=== PATIENT | male | born 1940 | race Caucasian/White ===

== ENCOUNTER 2020-05-23 19:28 | Emergency (ER) | payer MEDICARE, BC ==
[2020-05-23] MEDS ORDERED: Sodium Chloride 0.9% 10 ML Syringe FLUSH PRN (19:36)
[2020-05-23] MEDS ORDERED: Aspirin 81 MG Tab.Chew PO STA (19:43)
--- NOTE | 2020-05-23 19:46 | EDM.PDOC ---
ED HPI GENERAL MEDICAL PROBLEM - General Chief Complaint: Cardiovascular Problem Stated Complaint: HEART Time Seen by Provider: 05/23/20 19:30 Source of Information: Reports: Patient History Limitations: Reports: No Limitations - History of Present Illness INITIAL COMMENTS - FREE TEXT/NARRATIVE: Patient comes into the emergency department with complaint of defibrillator discharge x2. Patient states that he was sitting at home and felt that he had an irregular heartbeat that was racing and his defibrillator went off the first time. Patient was not aware that it was his actual defibrillator went off. He felt that he had electrical shock made by some water or electrical charge. However he called the [facility] call a nurse who stated to present to the emergency department And now on his way out of the home he had a second defibrillator discharge and went off. Patient states that he did get blurred vision but did not lose consciousness and did not lose his balance. Patient states he remembers all the events leading up to and after the defibrillator discharge.Also denies any active chest pain, shortness of breath, dizziness, lightheadedness, GI upset, or peripheral edema. Patient states is been relatively healthy and has no other concerns or complaints. Patient also denies any active COVID-19 symptoms or exposure to recent COVID positive patients.Patient did also take his evening meds. Patient did take 1 baby aspirin this morning with his normal daily medication regimen Onset: Sudden Severity: Mild Improves with: Reports: None Worsens with: Reports: None Associated Symptoms: Reports: No Other Symptoms - Related Data Allergies Allergy/AdvReac Type Severity Reaction Status Date / Time No Known Drug Allergies Allergy Other Verified 05/23/20 19:55 Home Meds: Home Meds Latanoprost [Xalatan] 2.5 ml .XX DAILY 05/28/14 [History] Losartan [Cozaar] 25 mg PO DAILY 05/28/14 [History] carvediloL [Coreg] 6.25 mg PO BID 05/28/14 [History] Aspirin 81 mg PO DAILY 09/03/16 [History] Past Medical History Cardiovascular History: Reports: Arrhythmia, Automatic Implantable Cardioverter Defibrillators, Hypertension ED ROS GENERAL - Review of Systems Review Of Systems: Comprehensive ROS is negative, except as noted in HPI. Constitutional: Reports: No Symptoms HEENT: Reports: No Symptoms Respiratory: Reports: No Symptoms Cardiovascular: Reports: No Symptoms Endocrine: Reports: No Symptoms GI/Abdominal: Reports: No Symptoms : Reports: No Symptoms Musculoskeletal: Reports: No Symptoms Skin: Reports: No Symptoms Neurological: Reports: No Symptoms Psychiatric: Reports: No Symptoms Hematologic/Lymphatic: Reports: No Symptoms Immunologic: Reports: No Symptoms ED EXAM, GENERAL - Physical Exam Exam: See Below Exam Limited By: No Limitations General Appearance: Alert, WD/WN, No Apparent Distress Head: Atraumatic, Normocephalic Neck: Normal Inspection, Supple, Non-Tender, Full Range of Motion Respiratory/Chest: No Respiratory Distress, Lungs Clear, Normal Breath Sounds, No Accessory Muscle Use, Chest Non-Tender Cardiovascular: Normal Peripheral Pulses, No Edema, No Rub GI/Abdominal: Normal Bowel Sounds, Soft, Non-Tender, No Abnormal Bruit Back Exam: Normal Inspection, Full Range of Motion Extremities: Normal Inspection, Normal Range of Motion, Non-Tender, No Pedal Edema, Normal Capillary Refill Neurological: Alert, Oriented, Normal Cognition, Normal Gait Psychiatric: Normal Affect, Normal Mood Skin Exam: Warm, Dry, Intact Course - Orders/Labs/Meds Orders: Active Orders 24 hr Category Date Time Status EKG Documentation Completion [RC] STAT Care 05/23/20 19:36 Active CBC WITH AUTO DIFF [HEME] Stat Lab 05/23/20 19:36 Ordered COMPREHENSIVE METABOLIC PN,CMP [CHEM] Stat Lab 05/23/20 19:36 Ordered PRO B-TYPE NATRIUR PEPT,BNPPRO [CHEM] Stat Lab 05/23/20 19:36 Ordered TROPONIN I [CHEM] Stat Lab 05/23/20 19:36 Ordered Sodium Chloride 0.9% [Saline Flush] Med 05/23/20 19:36 Active 10 ml FLUSH ASDIRECTED PRN Peripheral IV Insertion Adult [OM.PC] Stat Oth 05/23/20 19:36 Ordered Medication Orders Sodium Chloride (Saline Flush) 10 ml FLUSH ASDIRECTED PRN PRN Reason: Keep Vein Open Meds: Medications Generic Name Dose Route Start Last Admin Trade Name Freq PRN Reason Stop Dose Admin Sodium Chloride 10 ml 05/23/20 19:36 Saline Flush FLUSH ASDIRECTED PRN Keep Vein Open Departure - Departure Time of Disposition: 20:50 Disposition: Home, Self-Care 01 Clinical Impression: AICD discharge - Discharge Information *PRESCRIPTION DRUG MONITORING PROGRAM REVIEWED*: Not Applicable *COPY OF PRESCRIPTION DRUG MONITORING REPORT IN PATIENT [place]: Not Applicable Instructions: Nonspecific Chest Pain, Adult Forms: ED Department Discharge Additional Instructions: 1. rest 2. increase your water intake 3. Continue all at home medications 4. Activity and diet as tolerated 5. Can take over the counter Tylenol for any pain or discomfort 6. Follow up with PCP if symptoms continue, return, or progress 7. Call with any questions or concerns - My Orders Last 24 Hours: My Active Orders 05/23/20 19:36 EKG Documentation Completion [RC] STAT CBC WITH AUTO DIFF [HEME] Stat COMPREHENSIVE METABOLIC PN,CMP [CHEM] Stat PRO B-TYPE NATRIUR PEPT,BNPPRO [CHEM] Stat TROPONIN I [CHEM] Stat Sodium Chloride 0.9% [Saline Flush] 10 ml FLUSH ASDIRECTED PRN Peripheral IV Insertion Adult [OM.PC] Stat - Assessment/Plan Last 24 Hours: My Active Orders 05/23/20 19:36 EKG Documentation Completion [RC] STAT CBC WITH AUTO DIFF [HEME] Stat COMPREHENSIVE METABOLIC PN,CMP [CHEM] Stat PRO B-TYPE NATRIUR PEPT,BNPPRO [CHEM] Stat TROPONIN I [CHEM] Stat Sodium Chloride 0.9% [Saline Flush] 10 ml FLUSH ASDIRECTED PRN Peripheral IV Insertion Adult [OM.PC] Stat Assessment:: 1.defibrillator discharge Plan: 1. Labs completed in the ER. Results reviewed with the patient 2. IV initiated in the emergency department 3. Chest xray completed in ER. Results reviewed with the patient 4. ASA 3 chewable was given to the patient 5. EKG was completed in ER. Results reviewed with the patient 6. Patient and nursing staff was updated regarding the plan of care 7. Did discuss admission however, patient is not willing to be admitted for further observation. Patient and daughter who is at the bedside understand the risk and are willing to assume the risk. Patient is encouraged to call 911 if the defibrillator discharges while at home and not drive to the ER. 8. Education provided the patient regarding activity, diet, rest, [id number] medication modalities, and follow-up care was provided 9. Patient and family are agreeable to the above plan of care 10. All questions and concerns were addressed with the patient and family prior to discharge
[2020-05-23 20:07] VITALS: BP 145/89; PULSE 80
[2020-05-23 20:18] LABS: ANION GAP 14.8 mmol/L (10-20)
--- NOTE | 2020-05-24 09:59 | CR ---
[id number] RAD/RAD Chest PA or AP 1V EXAM: RAD Chest PA or AP 1V INDICATION: DFIB DISCHARGE COMPARISON: None. DISCUSSION: Median sternotomy wires. Left chest wall cardiac conduction device. Cardiomediastinal silhouette is stable in size and contour. No infiltrate, effusion, pneumothorax, or edema. Left basilar subsegmental atelectasis and/or scarring. IMPRESSION: No acute cardiopulmonary abnormality. Sushant Wills DO 05/24/20 0957 Thank you for allowing us to participate in the care of your patient.
== END 2020-05-23 21:07 | disposition home or self-care (01) ==
LOC: VM.ED 19:28
DX: T82.199A Other mechanical complication of unspecified cardiac device, initial encounter (principal); Z79.82 Long term (current) use of aspirin; Z79.899 Other long term (current) drug therapy
CPT/HCPCS: 71045; 80053; 83880; 84484; 85025; 93005; 99283; 99285-25; A9270-GY

== ENCOUNTER 2021-07-17 18:02 | Inpatient (IN) | payer MEDICARE, BC ==
[2021-07-17] MEDS ORDERED: Sodium Chloride 0.9% 10 ML Syringe FLUSH PRN (18:15)
[2021-07-17 19:06] LABS: CHLORIDE,CL 93 mmol/L (98-107)
[2021-07-17 19:07] LABS: PTT,PARTIAL THROMBOPLSTIN TIME 33.4 SEC (25.6-32.8)
[2021-07-17 19:08] LABS: ANION GAP 18.9 mmol/L (5-15); SODIUM,NA 124 mmol/L (136-145)
--- NOTE | 2021-07-17 19:20 | CR ---
[id number] RAD/RAD Chest PA or AP 1V EXAM: RAD Chest PA or AP 1V INDICATION: COUGH, EXPOSURE TO COVID. COMPARISON: May 23, 2020. DISCUSSION: Median sternotomy wires. Left chest wall cardiac conduction device. Cardiomediastinal silhouette is normal in size and contour. Patchy pulmonary infiltrates overlying the lungs bilaterally. No pneumothorax or pleural effusion. IMPRESSION: Patchy pulmonary infiltrates overlying the lungs bilaterally. Findings are likely infectious/inflammatory in nature as can be seen with atypical/brown pneumonia including COVID pneumonia. Sushant Wills DO 07/17/21 [id number] Thank you for allowing us to participate in the care of your patient.
[2021-07-17] MEDS ORDERED: Iopamidol 755 Mg/ML 100 ML Bottle IVPUSH ONE (19:23)
[2021-07-17] MEDS: Sodium Chloride 0.9% 1,000 ML IV SCH (19:53)
--- NOTE | 2021-07-17 20:34 | EDM.PDOC ---
ED HPI GENERAL MEDICAL PROBLEM - General Chief Complaint: Respiratory Problem Stated Complaint: TIGHTNESS IN CHEST Time Seen by Provider: 07/17/21 18:10 Source of Information: Reports: Patient History Limitations: Reports: No Limitations - History of Present Illness INITIAL COMMENTS - FREE TEXT/NARRATIVE: Pt. presents to ER via private vehicle with complaints of weakness and fatigue. His has covid 19 and is critically ill at a different facility. He states that he has not been screened, but has been symptomatic for approx. 10 days. Pt. denies any nausea or vomiting. No chest pain. He states that he is short of breath with he is walking, but states that he feels OK if he is at rest. He has a severe cough. Pt. has a history of severe CAD and cardiomyopathy. Last EF was 20-30%. Location: Reports: Generalized - Related Data Allergies Allergy/AdvReac Type Severity Reaction Status Date / Time No Known Drug Allergies Allergy Other Verified 07/17/21 18:37 Home Meds: Home Meds Latanoprost [Xalatan] 2.5 ml OP BEDTIME 05/28/14 [History] carvediloL [Coreg] 25 mg PO BID 05/28/14 [History] Aspirin 81 mg PO DAILY 09/03/16 [History] Amiodarone HCl [Pacerone] 200 mg PO DAILY 07/17/21 [History] Collins Flavor [Collins Concentrate] 100 ml PO ASDIRECTED 07/17/21 [History] Empagliflozin [Jardiance] 10 mg PO DAILY 07/17/21 [History] Sacubitril/Valsartan [Entresto 24 mg-26 mg Tablet] 1 each PO BID 07/17/21 [History] Spironolactone [Aldactone] 25 mg PO DAILY 07/17/21 [History] Past Medical History Cardiovascular History: Reports: Arrhythmia, Automatic Implantable Cardioverter Defibrillators, Heart Failure, High Cholesterol, Hypertension, Other (See Below) Other Cardiovascular History: paroxysmal vtach Respiratory History: Reports: Sleep Apnea Gastrointestinal History: Reports: Diverticulosis Oncologic (Cancer) History: Reports: Colon - Infectious Disease History Infectious Disease History: Reports: Novel Coronavirus - Past Surgical History Cardiovascular Surgical History: Reports: AICD, Coronary Artery Bypass Social & Family History - Tobacco Use Tobacco Use Status *Q: Unknown Ever Used Tobacco ED ROS GENERAL - Review of Systems Review Of Systems: See Below Constitutional: Reports: Fever, Chills, Malaise, Weakness, Fatigue HEENT: Reports: No Symptoms Respiratory: Reports: Shortness of Breath (when walking), Cough Cardiovascular: Reports: No Symptoms Endocrine: Reports: No Symptoms GI/Abdominal: Reports: No Symptoms : Reports: No Symptoms Musculoskeletal: Reports: No Symptoms Skin: Reports: No Symptoms Neurological: Reports: No Symptoms Psychiatric: Reports: No Symptoms Hematologic/Lymphatic: Reports: No Symptoms Immunologic: Reports: No Symptoms ED EXAM, GENERAL - Physical Exam Exam: See Below Exam Limited By: No Limitations General Appearance: Alert, WD/WN, No Apparent Distress Throat/Mouth: Normal Inspection, Normal Lips, Normal Oropharynx, Normal Voice, No Airway Compromise Head: Atraumatic, Normocephalic Neck: Normal Inspection, Supple, Non-Tender, Full Range of Motion Respiratory/Chest: No Respiratory Distress, Decreased Breath Sounds, Crackles Cardiovascular: Normal Peripheral Pulses, Regular Rate, Rhythm, No Edema, No JVD Peripheral Pulses: 4+: Radial (L) GI/Abdominal: Soft, Non-Tender, No Distention, No Mass (Male) Exam: Deferred Rectal (Males) Exam: Deferred Back Exam: Normal Inspection, Full Range of Motion Extremities: Normal Inspection, Normal Range of Motion, Non-Tender, No Pedal Edema, Normal Capillary Refill Neurological: Alert, Oriented, CN II-XII Intact, Normal Cognition, Normal Gait, Normal Reflexes, No Motor/Sensory Deficits Psychiatric: Normal Affect, Normal Mood Skin Exam: Warm, Dry, Intact, Normal Color, No Rash Course - Vital Signs Last Recorded V/S: Last Vital Signs Temp 35.9 C L 07/17/21 19:32 Pulse 74 07/17/21 19:32 Resp 18 07/17/21 19:32 BP 118/66 07/17/21 19:32 Pulse Ox 93 L 07/17/21 19:32 - Orders/Labs/Meds Orders: Active Orders 24 hr Category Date Time Status Ang Chest [CT] Stat Exams 07/17/21 19:12 Taken CULTURE BLOOD [BC] Stat Lab 07/17/21 18:30 Received CULTURE BLOOD [BC] Stat Lab 07/17/21 18:36 Received Sodium Chloride 0.9% [Normal Saline] 1,000 ml Med 07/17/21 19:15 Active IV ASDIRECTED Sodium Chloride 0.9% [Saline Flush] Med 07/17/21 18:15 Active 10 ml FLUSH ASDIRECTED PRN Blood Culture x2 Reflex Set [OM.PC] Stat Oth 07/17/21 18:15 Ordered Peripheral IV Insertion Adult [OM.PC] Routine Oth 07/17/21 18:15 Ordered Medication Orders Sodium Chloride (Normal Saline) 1,000 mls @ 500 mls/hr IV ASDIRECTED SHARIF Last Admin: 07/17/21 19:53 Dose: 500 mls/hr Documented by: BIETAMY Sodium Chloride (Sodium Chloride 0.9% 10 Ml Syringe) 10 ml FLUSH ASDIRECTED PRN PRN Reason: Keep Vein Open Labs: Laboratory Tests 07/17/21 07/17/21 07/17/21 Range/Units 18:23 18:30 18:30 WBC 11.8 H (4.0-10.0) x10^3/uL RBC 5.11 (4.5-6.0) x10^6/uL Hgb 15.2 (14.0-18.0) g/dL Hct 43.1 (40.0-52.0) % MCV 84.3 (78.0-93.0) fL MCH 29.7 (26.0-32.0) pg MCHC 35.3 (32.0-36.0) g/dL RDW Coeff of Rose 12.6 (10.0-15.0) % Plt Count 148 (130-400) x10^3/uL Immature Gran % (Auto) 0.30 (0.00-0.43) % Neut % (Auto) 88.5 H (50.0-80.0) % Lymph % (Auto) 4.7 L (25.0-50.0) % [place] % (Auto) 6.5 (2.0-11.0) % Eos % (Auto) 0.0 (0.0-4.0) % Baso % (Auto) 0.0 L (0.2-1.2) % Neut # (Auto) 10.4 H (1.8-7.7) x10^3/uL Lymph # (Auto) 0.6 L (1.0-4.8) x10^3/uL [place] # (Auto) 0.8 (0.0-0.8) x10^3/uL Eos # (Auto) 0.0 (0.0-0.5) x10^3/uL Baso # (Auto) 0.0 (0.0-0.2) x10^3/uL Immature Gran # (Auto) 0.04 (0.00-0.07) x10^3/uL PT 11.5 (9.9-12.5) SEC INR 1.0 L (2.0-3.5) APTT 33.4 H (25.6-32.8) SEC D-Dimer, Quantitative 0.61 H (<=0.58) mg/LFEU Sodium (136-145) mmol/L Potassium (3.5-5.1) mmol/L Chloride (98-107) mmol/L Carbon Dioxide (21-32) mmol/L Anion Gap (5-15) mmol/L BUN (7-18) mg/dL Creatinine (0.70-1.30) mg/dL Est Cr Clr Drug Dosing Estimated GFR (MDRD) Glucose (70-99) mg/dL Lactic Acid (0.4-2.0) mmol/L Calcium (8.5-10.1) mg/dL Corrected Calcium (8.5-10.1) mg/dL Phosphorus (2.6-4.7) mg/dL Magnesium (1.8-2.4) mg/dL Total Bilirubin (0.2-1.0) mg/dL AST (15-37) U/L ALT (16-63) U/L Alkaline Phosphatase (46-116) U/L Lactate Dehydrogenase (85-227) U/L C-Reactive Protein (<=0.9) mg/dL Total Protein (6.4-8.2) g/dL Albumin (3.4-5.0) g/dL Globulin Albumin/Globulin Ratio SARS CoV-2 RNA Rapid LUCINDA Positive H (NEGATIVE) 07/17/21 07/17/21 Range/Units 18:30 18:30 WBC (4.0-10.0) x10^3/uL RBC (4.5-6.0) x10^6/uL Hgb (14.0-18.0) g/dL Hct (40.0-52.0) % MCV (78.0-93.0) fL MCH (26.0-32.0) pg MCHC (32.0-36.0) g/dL RDW Coeff of Rose (10.0-15.0) % Plt Count (130-400) x10^3/uL Immature Gran % (Auto) (0.00-0.43) % Neut % (Auto) (50.0-80.0) % Lymph % (Auto) (25.0-50.0) % [place] % (Auto) (2.0-11.0) % Eos % (Auto) (0.0-4.0) % Baso % (Auto) (0.2-1.2) % Neut # (Auto) (1.8-7.7) x10^3/uL Lymph # (Auto) (1.0-4.8) x10^3/uL [place] # (Auto) (0.0-0.8) x10^3/uL Eos # (Auto) (0.0-0.5) x10^3/uL Baso # (Auto) (0.0-0.2) x10^3/uL Immature Gran # (Auto) (0.00-0.07) x10^3/uL PT (9.9-12.5) SEC INR (2.0-3.5) APTT (25.6-32.8) SEC D-Dimer, Quantitative (<=0.58) mg/LFEU Sodium 124 L* D (136-145) mmol/L Potassium 3.9 (3.5-5.1) mmol/L Chloride 93 L (98-107) mmol/L Carbon Dioxide 16 L D (21-32) mmol/L Anion Gap 18.9 H (5-15) mmol/L BUN 39 H (7-18) mg/dL Creatinine 1.3 (0.70-1.30) mg/dL Est Cr Clr Drug Dosing TNP Estimated GFR (MDRD) 53 Glucose 126 H (70-99) mg/dL Lactic Acid 1.6 (0.4-2.0) mmol/L Calcium 8.1 L (8.5-10.1) mg/dL Corrected Calcium 9.1 (8.5-10.1) mg/dL Phosphorus 3.0 (2.6-4.7) mg/dL Magnesium 2.3 (1.8-2.4) mg/dL Total Bilirubin 0.9 (0.2-1.0) mg/dL AST 47 H (15-37) U/L ALT 39 (16-63) U/L Alkaline Phosphatase 46 (46-116) U/L Lactate Dehydrogenase 328 H (85-227) U/L C-Reactive Protein 33.7 H (<=0.9) mg/dL Total Protein 5.7 L (6.4-8.2) g/dL Albumin 2.8 L (3.4-5.0) g/dL Globulin 2.9 Albumin/Globulin Ratio 0.97 SARS CoV-2 RNA Rapid LUCINDA (NEGATIVE) Meds: Medications Generic Name Dose Route Start Last Admin Trade Name Freq PRN Reason Stop Dose Admin Sodium Chloride 1,000 mls @ 500 mls/hr 07/17/21 19:15 07/17/21 19:53 Normal Saline IV 500 mls/hr ASDIRECTED SHARIF Administration Sodium Chloride 10 ml 07/17/21 18:15 Sodium Chloride 0.9% 10 Ml Syringe FLUSH ASDIRECTED PRN Keep Vein Open Discontinued Medications Generic Name Dose Route Start Last Admin Trade Name Freq PRN Reason Stop Dose Admin Iopamidol 100 ml 07/17/21 19:23 Iopamidol 755 Mg/Ml 100 Ml Bottle IVPUSH 07/17/21 19:24 ONETIME ONE Departure - Departure Time of Disposition: 09:25 Disposition: Admitted As Inpatient 65 Clinical Impression: Pneumonia due to COVID-19 virus, Hypoxia, Hyponatremia - Discharge Information Sepsis Event Note (ED) - Focused Exam Vital Signs: Vital Signs Temp Pulse Resp BP Pulse Ox 07/17/21 19:32 35.9 C L 74 18 118/66 93 L 07/17/21 18:10 36.3 C 76 18 117/62 93 L - Problem List Review Problem List Initiated/Reviewed/Updated: Yes - My Orders Last 24 Hours: My Active Orders 07/17/21 18:15 Sodium Chloride 0.9% [Saline Flush] 10 ml FLUSH ASDIRECTED PRN Blood Culture x2 Reflex Set [OM.PC] Stat Peripheral IV Insertion Adult [OM.PC] Routine 07/17/21 18:30 CULTURE BLOOD [BC] Stat 07/17/21 18:36 CULTURE BLOOD [BC] Stat 07/17/21 19:12 Ang Chest [CT] Stat 07/17/21 19:15 Sodium Chloride 0.9% [Normal Saline] 1,000 ml IV ASDIRECTED - Assessment/Plan Last 24 Hours: My Active Orders 07/17/21 18:15 Sodium Chloride 0.9% [Saline Flush] 10 ml FLUSH ASDIRECTED PRN Blood Culture x2 Reflex Set [OM.PC] Stat Peripheral IV Insertion Adult [OM.PC] Routine 07/17/21 18:30 CULTURE BLOOD [BC] Stat 07/17/21 18:36 CULTURE BLOOD [BC] Stat 07/17/21 19:12 Ang Chest [CT] Stat 07/17/21 19:15 Sodium Chloride 0.9% [Normal Saline] 1,000 ml IV ASDIRECTED Plan: Pt. will be admitted acutely. He is a code 2, DNR/DNI. He is mildly hypoxic and hyponatremic. Pt. was started on IV normal saline at 125ml/hr. Will give fluids judiciously given his history of cardiomyopathy and covid. Pt. adamantly refuses remdesivir during his stay. I did discuss this with his daughter, Bibiana, who concurs. Did discuss the risks/benefits of use of the medication, the potential of the patient becoming more ill without it and she does not wish for him to have it. She is a pharmacist and understands the risks and benefits. Will start him on decadron. Will continue oxygen to keep O2 sat above 90%.
[2021-07-17] MEDS ORDERED: [UNRECOGNIZED DRUG - OTHER] PO SCH (21:45)
[2021-07-17] MEDS: dexAMETHasone 2 MG, dexAMETHasone 4 MG PO SCH ×2 (22:20)
[2021-07-18] MEDS ORDERED: Albuterol 0.083% 2.5 MG/3 ML Neb Soln NEB SCH (00:45)
[2021-07-18] MEDS ORDERED: Albuterol 0.083% 2.5 MG/3 ML Neb Soln NEB ONE (01:30)
[2021-07-18] MEDS: Benzonatate 100 MG Cap PO SCH ×4 (01:38→20:10)
[2021-07-18] MEDS: Albuterol 0.083% 2.5 MG/3 ML Neb Soln NEB SCH ×2 (04:09→07:22)
[2021-07-18] MEDS ORDERED: Sodium Chloride 0.9% 1,000 ML IV SCH (05:45)
[2021-07-18] MEDS: Spironolactone 25 MG Tab PO SCH (08:01)
[2021-07-18] MEDS: dexAMETHasone 2 MG, dexAMETHasone 4 MG PO SCH ×2 (08:01)
[2021-07-18] MEDS: Amiodarone 200 MG Tab PO SCH (08:01)
[2021-07-18] MEDS: Carvedilol 6.25 MG Tab PO SCH ×2 (08:01→20:10)
[2021-07-18] MEDS: Empagliflozin 10 MG Tab PO SCH (08:01)
[2021-07-18] MEDS: Aspirin 81 MG Tab.Chew PO SCH (08:02)
[2021-07-18] MEDS: Non-Formulary Medication 1 Each (Sacubitril/Valsartan [Entresto 24 Mg-26 Mg Tablet] 1 EACH PO SCH ×2 (08:03→20:10)
[2021-07-18] MEDS ORDERED: Albuterol 0.083% 2.5 MG/3 ML Neb Soln NEB PRN (08:08)
[2021-07-18] MEDS: Sodium Chloride 0.9% 1,000 ML IV SCH (08:10)
[2021-07-18 08:36] LABS: ANION GAP 15.6 mmol/L (5-15)
--- NOTE | 2021-07-18 10:28 | CT ---
[id number] CT/CTA Chest EXAM: CT ANGIOGRAM CHEST INDICATION: COVID POSITIVE. ELEVATED DDIMER. COMPARISON: None. DISCUSSION: The pulmonary arteries are normal in appearance with no emboli identified. Scattered groundglass density seen throughout the lungs bilaterally with a predominantly peripheral distribution. No pleural or pericardial effusion. Coronary artery disease. Atherosclerotic calcifications of the aorta and its branches. No mediastinal, hilar or axillary lymphadenopathy. The imaged upper abdomen and osseous structures are unremarkable. IMPRESSION: 1. No evidence of acute pulmonary embolism. 2. Scattered groundglass density seen throughout the lungs bilaterally with a predominantly peripheral distribution. Findings are likely infectious/inflammatory in nature as can be seen with atypical/viral pneumonia. This includes COVID pneumonia. Sushant Wills DO 07/18/21 1027 Thank you for allowing us to participate in the care of your patient.
--- NOTE | 2021-07-18 10:34 | PCM.HP.2 ---
H&P History of Present Illness - General Date of Service: 07/18/21 Admit Problem/Dx: Admission Diagnosis/Problem Admission Diagnosis/Problem Viral pneumonia Source of Information: Patient - History of Present Illness Initial Comments - Free Text/Narative: 80 year old male admitted through ER with complaints of SOB. Was found to be hypoxic and Covid positive. pt has refused remdisnivir therapy due it being "hard on the kidneys." Was started on decadron, IV fluid replacement and oxygen supplementation. Today patient states he is feeling about the same. Still coughing. Cough is nonproductive back Pain Score (Numeric/FACES): 4 - Related Data Allergies/Adverse Reactions: Allergies Allergy/AdvReac Type Severity Reaction Status Date / Time No Known Drug Allergies Allergy Other Verified 07/17/21 18:37 Home Medications: Home Meds Latanoprost [Xalatan] 2.5 ml OP BEDTIME 05/28/14 [History] carvediloL [Coreg] 25 mg PO BID 05/28/14 [History] Aspirin 81 mg PO DAILY 09/03/16 [History] Amiodarone HCl [Pacerone] 200 mg PO DAILY 07/17/21 [History] Collins Flavor [Collins Concentrate] 100 ml PO ASDIRECTED 07/17/21 [History] Empagliflozin [Jardiance] 10 mg PO DAILY 07/17/21 [History] Sacubitril/Valsartan [Entresto 24 mg-26 mg Tablet] 1 each PO BID 07/17/21 [History] Spironolactone [Aldactone] 25 mg PO DAILY 07/17/21 [History] Past Medical History Cardiovascular History: Reports: Arrhythmia, Automatic Implantable Cardioverter Defibrillators, Heart Failure, High Cholesterol, Hypertension, Other (See Below) Other Cardiovascular History: paroxysmal vtach Respiratory History: Reports: Sleep Apnea Gastrointestinal History: Reports: Diverticulosis Oncologic (Cancer) History: Reports: Colon - Infectious Disease History Infectious Disease History: Reports: Novel Coronavirus - Past Surgical History Cardiovascular Surgical History: Reports: AICD, Coronary Artery Bypass Social & Family History - Tobacco Use Tobacco Use Status *Q: Unknown Ever Used Tobacco H&P Review of Systems - Review of Systems: Review Of Systems: See Below General: Reports: Chills, Fatigue HEENT: Reports: No Symptoms Pulmonary: Reports: Shortness of Breath, Cough Cardiovascular: Denies: Chest Pain Gastrointestinal: Denies: Abdominal Pain Genitourinary: Reports: No Symptoms Skin: Reports: No Symptoms Psychiatric: Reports: No Symptoms Neurological: Reports: No Symptoms Exam - Exam Exam: See Below - Vital Signs Vital Signs: Last Vital Signs Temp 36.6 C 07/18/21 06:05 Pulse 61 07/18/21 08:01 Resp 21 H 07/18/21 06:05 BP 110/50 L 07/18/21 08:01 Pulse Ox 93 L 07/18/21 07:24 Weight: 86.636 kg - Exam Quality Assessment: Supplemental Oxygen General: Alert, Oriented HEENT: Conjunctiva Clear, Mucosa Moist & [place] Neck: Supple Lungs: Clear to Auscultation Cardiovascular: Regular Rate GI/Abdominal Exam: Soft Extremities: Normal Inspection Neuro Extensive - Mental Status: Alert, Oriented x3 - Patient Data Lab Results Last 24 hrs: Laboratory Results - last 24 hr 07/17/21 07/17/21 07/17/21 Range/Units 18:23 18:30 18:30 WBC 11.8 H (4.0-10.0) x10^3/uL RBC 5.11 (4.5-6.0) x10^6/uL Hgb 15.2 (14.0-18.0) g/dL Hct 43.1 (40.0-52.0) % MCV 84.3 (78.0-93.0) fL MCH 29.7 (26.0-32.0) pg MCHC 35.3 (32.0-36.0) g/dL RDW Coeff of Rose 12.6 (10.0-15.0) % Plt Count 148 (130-400) x10^3/uL Immature Gran % (Auto) 0.30 (0.00-0.43) % Neut % (Auto) 88.5 H (50.0-80.0) % Lymph % (Auto) 4.7 L (25.0-50.0) % [place] % (Auto) 6.5 (2.0-11.0) % Eos % (Auto) 0.0 (0.0-4.0) % Baso % (Auto) 0.0 L (0.2-1.2) % Neut # (Auto) 10.4 H (1.8-7.7) x10^3/uL Lymph # (Auto) 0.6 L (1.0-4.8) x10^3/uL [place] # (Auto) 0.8 (0.0-0.8) x10^3/uL Eos # (Auto) 0.0 (0.0-0.5) x10^3/uL Baso # (Auto) 0.0 (0.0-0.2) x10^3/uL Immature Gran # (Auto) 0.04 (0.00-0.07) x10^3/uL PT 11.5 (9.9-12.5) SEC INR 1.0 L (2.0-3.5) APTT 33.4 H (25.6-32.8) SEC D-Dimer, Quantitative 0.61 H (<=0.58) mg/LFEU Sodium (136-145) mmol/L Potassium (3.5-5.1) mmol/L Chloride (98-107) mmol/L Carbon Dioxide (21-32) mmol/L Anion Gap (5-15) mmol/L BUN (7-18) mg/dL Creatinine (0.70-1.30) mg/dL Est Cr Clr Drug Dosing Estimated GFR (MDRD) Glucose (70-99) mg/dL Lactic Acid (0.4-2.0) mmol/L Calcium (8.5-10.1) mg/dL Corrected Calcium (8.5-10.1) mg/dL Phosphorus (2.6-4.7) mg/dL Magnesium (1.8-2.4) mg/dL Total Bilirubin (0.2-1.0) mg/dL AST (15-37) U/L ALT (16-63) U/L Alkaline Phosphatase (46-116) U/L Lactate Dehydrogenase (85-227) U/L C-Reactive Protein (<=0.9) mg/dL Total Protein (6.4-8.2) g/dL Albumin (3.4-5.0) g/dL Globulin Albumin/Globulin Ratio SARS CoV-2 RNA Rapid LUCINDA Positive H (NEGATIVE) 07/17/21 07/17/21 07/18/21 Range/Units 18:30 18:30 08:13 WBC (4.0-10.0) x10^3/uL RBC (4.5-6.0) x10^6/uL Hgb (14.0-18.0) g/dL Hct (40.0-52.0) % MCV (78.0-93.0) fL MCH (26.0-32.0) pg MCHC (32.0-36.0) g/dL RDW Coeff of Rose (10.0-15.0) % Plt Count (130-400) x10^3/uL Immature Gran % (Auto) (0.00-0.43) % Neut % (Auto) (50.0-80.0) % Lymph % (Auto) (25.0-50.0) % [place] % (Auto) (2.0-11.0) % Eos % (Auto) (0.0-4.0) % Baso % (Auto) (0.2-1.2) % Neut # (Auto) (1.8-7.7) x10^3/uL Lymph # (Auto) (1.0-4.8) x10^3/uL [place] # (Auto) (0.0-0.8) x10^3/uL Eos # (Auto) (0.0-0.5) x10^3/uL Baso # (Auto) (0.0-0.2) x10^3/uL Immature Gran # (Auto) (0.00-0.07) x10^3/uL PT (9.9-12.5) SEC INR (2.0-3.5) APTT (25.6-32.8) SEC D-Dimer, Quantitative (<=0.58) mg/LFEU Sodium 124 L* D 127 L* (136-145) mmol/L Potassium 3.9 4.6 (3.5-5.1) mmol/L Chloride 93 L 96 L (98-107) mmol/L Carbon Dioxide 16 L D 20 L (21-32) mmol/L Anion Gap 18.9 H 15.6 H (5-15) mmol/L BUN 39 H 29 H (7-18) mg/dL Creatinine 1.3 1.2 (0.70-1.30) mg/dL Est Cr Clr Drug Dosing TNP 46.71 Estimated GFR (MDRD) 53 58 Glucose 126 H 116 H (70-99) mg/dL Lactic Acid 1.6 (0.4-2.0) mmol/L Calcium 8.1 L 8.3 L (8.5-10.1) mg/dL Corrected Calcium 9.1 (8.5-10.1) mg/dL Phosphorus 3.0 (2.6-4.7) mg/dL Magnesium 2.3 (1.8-2.4) mg/dL Total Bilirubin 0.9 (0.2-1.0) mg/dL AST 47 H (15-37) U/L ALT 39 (16-63) U/L Alkaline Phosphatase 46 (46-116) U/L Lactate Dehydrogenase 328 H (85-227) U/L C-Reactive Protein 33.7 H (<=0.9) mg/dL Total Protein 5.7 L (6.4-8.2) g/dL Albumin 2.8 L (3.4-5.0) g/dL Globulin 2.9 Albumin/Globulin Ratio 0.97 SARS CoV-2 RNA Rapid LUCINDA (NEGATIVE) Result Diagrams: 07/18/21 08:13 07/18/21 08:13 Sepsis Event Note - Evaluation Sepsis Screening Result: No Definite Risk - Focused Exam Vital Signs: Vital Signs Temp Pulse Pulse Resp BP BP Pulse Ox 07/18/21 08:01 61 110/50 L 07/18/21 07:24 07/18/21 06:05 36.6 C 61 21 H 110/50 L 91 L 07/18/21 01:47 TERADATA [employer]CHIT[employer] 36.4 C 60 21 H 101/53 L 92 L Pulse Ox 07/18/21 08:01 07/18/21 07:24 93 L 07/18/21 06:05 07/18/21 01:47 TERADATA SOL[employer] ARCHITECT - Problem List (1) Acute respiratory failure with hypoxia SNOMED Code(s): 08696455, 663882010 ICD Code: J96.01 - ACUTE RESPIRATORY FAILURE WITH HYPOXIA Status: Acute Current Visit: Yes (2) Hyponatremia SNOMED Code(s): 30748054 ICD Code: E87.1 - HYPO-OSMOLALITY AND HYPONATREMIA Status: Acute Current Visit: Yes (3) Pneumonia due to COVID-19 virus SNOMED Code(s): 692184773523287215 ICD Code: U07.1 - COVID-19; J12.82 - PNEUMONIA DUE TO CORONAVIRUS DISEASE 2019 Status: Acute Current Visit: Yes Problem List Initiated/Reviewed/Updated: Yes Orders Last 24hrs: Active Orders 24 hr Category Date Time Status Patient Status [ADT] Routine ADT 07/17/21 19:51 Active Cardiac Monitoring [RC] 06,10,14,18,22,02 Care 07/17/21 21:14 Active Oxygen Therapy [RC] 08,20 Care 07/17/21 21:06 Active RT Aerosol Therapy [RC] 07,11,15,19,23,03 Care 07/18/21 00:45 Active Up With Assistance [RC] 08,20 Care 07/17/21 21:06 Active VTE/DVT Education [RC] .PRN Care 07/17/21 21:06 Active Vital Signs [RC] 06,10,14,18,22,02 Care 07/17/21 21:06 Active Adult Diet [DIET] Diet 07/18/21 Breakfast Active Ang Chest [CT] Stat Exams 07/17/21 19:12 Taken CULTURE BLOOD [] Stat Lab 07/17/21 18:30 Received CULTURE BLOOD [] Stat Lab 07/17/21 18:36 Received Albuterol [Proventil Neb Soln] Med 07/18/21 08:08 Active 2.5 mg NEB Q4H PRN Amiodarone [Cordarone] Med 07/18/21 08:00 Active 200 mg PO DAILY Aspirin Med 07/18/21 08:00 Active 81 mg PO DAILY Benzonatate [Tessalon Perles] Med 07/18/21 01:22 Active 100 mg PO TID Collins Flavor [Collins Concentrate] Med 07/17/21 21:45 Active 100 ml PO ASDIRECTED Empagliflozin [Jardiance] Med 07/18/21 08:00 Active 10 mg PO DAILY Latanoprost [Xalatan 0.005% Ophth Soln] Med 07/18/21 20:00 Active 2.5 ml OP BEDTIME Sacubitril/Valsartan [Entresto 24 mg-26 mg Tablet] Med 07/18/21 08:00 Active 1 each PO BID Sodium Chloride 0.9% [Normal Saline] 1,000 ml Med 07/17/21 19:15 Active IV ASDIRECTED Sodium Chloride 0.9% [Normal Saline] 1,000 ml Med 07/18/21 05:45 Active IV ASDIRECTED Sodium Chloride 0.9% [Saline Flush] Med 07/17/21 18:15 Active 10 ml FLUSH ASDIRECTED PRN Spironolactone [Aldactone] Med 07/18/21 08:00 Active 25 mg PO DAILY carvediloL [Coreg] Med 07/18/21 08:00 Active 25 mg PO BID dexAMETHasone 6 MG Med 07/17/21 21:45 Active 6 mg PO DAILY Blood Culture x2 Reflex Set [OM.PC] Stat Ot 07/17/21 18:15 Ordered Peripheral IV Insertion Adult [OM.PC] Routine Oth 07/17/21 18:15 Ordered Code Status [Resuscitation Status] Routine Resus Stat 07/17/21 21:05 Ordered Medication Orders Albuterol (Albuterol 0.083% 2.5 Mg/3 Ml Neb Soln) 2.5 mg NEB Q4H PRN PRN Reason: Shortness of Breath Amiodarone HCl (Amiodarone 200 Mg Tab) 200 mg PO DAILY [facility] Last Admin: 07/18/21 08:01 Dose: 200 mg Documented by: CONNOR Aspirin (Aspirin 81 Mg Tab.Chew) 81 mg PO DAILY [facility] Last Admin: 07/18/21 08:02 Dose: 81 mg Documented by: CONNOR Benzonatate (Benzonatate 100 Mg Cap) 100 mg PO TID [facility] Last Admin: 07/18/21 08:00 Dose: 100 mg Documented by: Admin: 07/18/21 01:38 CDT Dose: 100 mg Documented by: SHANIQUE Carvedilol (Carvedilol 6.25 Mg Tab) 25 mg PO BID [facility] Last Admin: 07/18/21 08:01 Dose: 25 mg Documented by: CONNOR Dexamethasone 2 mg/ (Dexamethasone 4 mg) 6 mg PO DAILY [facility] Last Admin: 07/18/21 08:01 Dose: 6 mg Documented by: Admin: 07/17/21 22:20 Dose: 6 mg Documented by: SHANIQUE Sodium Chloride (Normal Saline) 1,000 mls @ 500 mls/hr IV ASDIRECTED [facility] Last Admin: 07/18/21 08:10 Dose: 75 mls/hr Documented by: Infusion: 07/18/21 05:37 Dose: 75 mls/hr Documented by: Infusion: 07/17/21 23:00 Dose: 75 mls/hr Documented by: Infusion: 07/17/21 21:34 Dose: 125 mls/hr Documented by: Admin: 07/17/21 19:53 Dose: 500 mls/hr Documented by: SUZI Sodium Chloride (Normal Saline) 1,000 mls @ 75 mls/hr IV ASDIRECTED [facility]AR[facility] Non-Formulary Medication (Collins Flavor [Collins Concentrate]) 100 ml PO ASDIRECTED [facility] Non-Formulary Medication (Latanoprost [Xalatan 0.005% Ophth Soln]) 2.5 ml OP BEDTIME [facility] Non-Formulary Medication (Sacubitril/Valsartan [Entresto 24 Mg-26 Mg Tablet]) 1 each PO BID [facility] Last Admin: 07/18/21 08:03 Dose: Not Given Documented by: CONNOR Sodium Chloride (Sodium Chloride 0.9% 10 Ml Syringe) 10 ml FLUSH ASDIRECTED PRN PRN Reason: Keep Vein Open Spironolactone (Spironolactone 25 Mg Tab) 25 mg PO DAILY [facility] Last Admin: 07/18/21 08:01 Dose: 25 mg Documented by: CONNOR Assessment/Plan Comment:: Rachel trejo - pt continues to refuse remdisnivir. will check on availability of olumiant. Continue decadron and oxygen. Hyponatriemia - Continue with IV fluids - cautious due to patients cardiac history. - Mortality Measure Prognosis:: Good
[2021-07-18] MEDS ORDERED: Non-Formulary Medication 1 Each (Latanoprost [Xalatan 0.005% Ophth Soln] 2.5 ML Bottle) OP SCH (20:00)
[2021-07-18] MEDS: Albuterol HFA 18 Gm Inhaler INH PRN (20:13)
[2021-07-19] MEDS ORDERED: VALSARTAN PO SCH (04:42)
[2021-07-19] MEDS ORDERED: SACUBITRIL PO SCH (04:42)
[2021-07-19] MEDS: Acetaminophen 325 MG Tab PO PRN ×3 (06:33→20:19)
[2021-07-19 07:22] LABS: CHLORIDE,CL 99 mmol/L (98-107)
[2021-07-19 07:23] LABS: ANION GAP 16.6 mmol/L (5-15); SODIUM,NA 129 mmol/L (136-145)
--- NOTE | 2021-07-19 08:04 | PCM.PN ---
- General Info Date of Service: 07/19/21 Admission Dx/Problem (Free Text): Admission Diagnosis/Problem Admission Diagnosis/Problem Viral pneumonia Subjective Update: Patient states overall he feels better. States his cough responds well to tessalon. Has a back ache. Yesterday, patients daughter, Lanny, at home secondary to Covid. has been hospitalized in [place] due to covid, encephalopathy. Patient states everyone started with symptoms on 07/06. Patient had been refusing Remdisnivir due to concerns of impact on renal function. This morning states he agrees to this therapy. Oxygen requirements have increased from 2L -5L to maintain sates of 92% - Review of Systems General: Reports: Weakness Pulmonary: Reports: Cough Cardiovascular: Denies: Chest Pain Gastrointestinal: Reports: No Symptoms Genitourinary: Reports: No Symptoms Musculoskeletal: Reports: Back Pain - Patient Data Vitals - Most Recent: Last Vital Signs Temp 36.6 C 07/19/21 06:00 Pulse 62 07/19/21 06:00 Resp 20 07/19/21 06:00 BP 107/60 07/19/21 06:00 Pulse Ox 92 L 07/19/21 06:00 Weight - Most Recent: 86.636 kg I&O - Last 24 Hours: Intake & Output 07/18/21 07/19/21 07/19/21 22:59 06:59 14:59 Intake Total 1000 1600 Output Total 1100 0 Balance -100 1600 Lab Results Last 24 Hours: Laboratory Results - last 24 hr 07/18/21 07/18/21 Range/Units 08:13 08:13 WBC 10.8 H (4.0-10.0) x10^3/uL RBC 5.16 (4.5-6.0) x10^6/uL Hgb 15.5 (14.0-18.0) g/dL Hct 44.0 (40.0-52.0) % MCV 85.3 (78.0-93.0) fL MCH 30.0 (26.0-32.0) pg MCHC 35.2 (32.0-36.0) g/dL RDW Coeff of Rose 12.9 (10.0-15.0) % Plt Count 151 (130-400) x10^3/uL Sodium 127 L* (136-145) mmol/L Potassium 4.6 (3.5-5.1) mmol/L Chloride 96 L (98-107) mmol/L Carbon Dioxide 20 L (21-32) mmol/L Anion Gap 15.6 H (5-15) mmol/L BUN 29 H (7-18) mg/dL Creatinine 1.2 (0.70-1.30) mg/dL Est Cr Clr Drug Dosing 46.71 mL/min Estimated GFR (MDRD) 58 Glucose 116 H (70-99) mg/dL Calcium 8.3 L (8.5-10.1) mg/dL Nitin Results Last 24 Hours: Microbiology 07/17/21 18:36 Aerobic Blood Culture - Preliminary Blood - Venous - Lab Draw NO GROWTH AFTER 1 DAY Anaerobic Blood Culture - Preliminary NO GROWTH AFTER 1 DAY 07/17/21 18:30 Aerobic Blood Culture - Preliminary Blood - Venous NO GROWTH AFTER 1 DAY Anaerobic Blood Culture - Preliminary NO GROWTH AFTER 1 DAY Med Orders - Current: Current Medications Acetaminophen (Acetaminophen 325 Mg Tab) 650 mg PO Q4H PRN PRN Reason: Pain Last Admin: 07/19/21 06:33 Dose: 650 mg Documented by: Albuterol (Albuterol Hfa 18 Gm Inhaler) 0 gm INH Q4H PRN PRN Reason: Shortness of Breath Last Admin: 07/18/21 20:13 Dose: 2 puff Documented by: Amiodarone HCl (Amiodarone 200 Mg Tab) 200 mg PO DAILY [facility] Last Admin: 07/18/21 08:01 Dose: 200 mg Documented by: Aspirin (Aspirin 81 Mg Tab.Chew) 81 mg PO DAILY [facility] Last Admin: 07/18/21 08:02 Dose: 81 mg Documented by: Benzonatate (Benzonatate 100 Mg Cap) 100 mg PO TID [facility] Last Admin: 07/18/21 20:10 Dose: 100 mg Documented by: Carvedilol (Carvedilol 6.25 Mg Tab) 25 mg PO BID [facility] Last Admin: 07/18/21 20:10 Dose: 25 mg Documented by: Dexamethasone 2 mg/ (Dexamethasone 4 mg) 6 mg PO DAILY [facility] Last Admin: 07/18/21 08:01 Dose: 6 mg Documented by: Enoxaparin Sodium (Enoxaparin 40 Mg/0.4 Ml Syringe) 40 mg SUBCUT Q24H [facility] Sodium Chloride (Normal Saline) 1,000 mls @ 50 mls/hr IV ASDIRECTED SHARIF Non-Formulary Medication (Collins Flavor [Collins Concentrate]) 100 ml PO ASDIRECTED SHAR[facility] (Latanoprost [ Xalatan 0.005% Ophth Soln] 2.5 Ml Bottle )Own Med 0 ml EYEBOTH BEDTIME SHARIF (Sacubitril/Valsartan [Entresto 24 Mg-26 Mg Tablet] Own Med 1 each PO BID [facility] Sodium Chloride (Sodium Chloride 0.9% 10 Ml Syringe) 10 ml FLUSH ASDIRECTED PRN PRN Reason: Keep Vein Open Spironolactone (Spironolactone 25 Mg Tab) 25 mg PO DAILY [facility] Last Admin: 07/18/21 08:01 Dose: 25 mg Documented by: Discontinued Medications Albuterol (Albuterol 0.083% 2.5 Mg/3 Ml Neb Soln) 2.5 mg NEB Q4H [facility] Last Admin: 07/18/21 01:45 CDT Dose: Not Given Documented by: Albuterol (Albuterol 0.083% 2.5 Mg/3 Ml Neb Soln) 2.5 mg NEB Q4H [facility] Last Admin: 07/18/21 07:22 Dose: 2.5 mg Documented by: Albuterol (Albuterol 0.083% 2.5 Mg/3 Ml Neb Soln) 2.5 mg NEB ONETIME ONE Stop: 07/18/21 01:31 [employer] Last Admin: 07/18/21 01:39 CDT Dose: 2.5 mg Documented by: Albuterol (Albuterol 0.083% 2.5 Mg/3 Ml Neb Soln) 2.5 mg NEB Q4H PRN PRN Reason: Shortness of Breath Sodium Chloride (Normal Saline) 1,000 mls @ 500 mls/hr IV ASDIRECTED [facility] Last Admin: 07/18/21 08:10 Dose: 75 mls/hr Documented by: Sodium Chloride (Normal Saline) 1,000 mls @ 75 mls/hr IV ASDIRECTED [facility] Last Admin: 07/18/21 22:43 Dose: 75 mls/hr Documented by: Iopamidol (Iopamidol 755 Mg/Ml 100 Ml Bottle) 100 ml IVPUSH ONETIME ONE Stop: 07/17/21 19:24 Non-Formulary Medication (Latanoprost [Xalatan 0.005% [facility] Soln]) 2.5 ml OP BEDTIME [facility] Last Admin: 07/18/21 20:14 Dose: 2.5 ml Documented by: Non-Formulary Medication (Sacubitril/Valsartan [Entresto 24 Mg-26 Mg Tablet]) 1 each PO BID [facility] Last Admin: 07/18/21 20:10 Dose: Not Given Documented by: - Exam Quality Assessment: Supplemental Oxygen General: Alert, Oriented HEENT: Pupils Equal Neck: Supple Lungs: Rhonchi Cardiovascular: Regular Rate - Patient Data Lab Results Last 24 hrs: Laboratory Results - last 24 hr 07/18/21 07/18/21 Range/Units 08:13 08:13 WBC 10.8 H (4.0-10.0) x10^3/uL RBC 5.16 (4.5-6.0) x10^6/uL Hgb 15.5 (14.0-18.0) g/dL Hct 44.0 (40.0-52.0) % MCV 85.3 (78.0-93.0) fL MCH 30.0 (26.0-32.0) pg MCHC 35.2 (32.0-36.0) g/dL RDW Coeff of Rose 12.9 (10.0-15.0) % Plt Count 151 (130-400) x10^3/uL Sodium 127 L* (136-145) mmol/L Potassium 4.6 (3.5-5.1) mmol/L Chloride 96 L (98-107) mmol/L Carbon Dioxide 20 L (21-32) mmol/L Anion Gap 15.6 H (5-15) mmol/L BUN 29 H (7-18) mg/dL Creatinine 1.2 (0.70-1.30) mg/dL Est Cr Clr Drug Dosing 46.71 mL/min Estimated GFR (MDRD) 58 Glucose 116 H (70-99) mg/dL Calcium 8.3 L (8.5-10.1) mg/dL Result Diagrams: 07/18/21 08:13 07/18/21 08:13 Nitin Results Last 24 hrs: Microbiology 07/17/21 18:36 Aerobic Blood Culture - Preliminary Blood - Venous - Lab Draw NO GROWTH AFTER 1 DAY Anaerobic Blood Culture - Preliminary NO GROWTH AFTER 1 DAY 07/17/21 18:30 Aerobic Blood Culture - Preliminary Blood - Venous NO GROWTH AFTER 1 DAY Anaerobic Blood Culture - Preliminary NO GROWTH AFTER 1 DAY Sepsis Event Note - Evaluation Sepsis Screening Result: No Definite Risk - Focused Exam Vital Signs: Vital Signs Temp Pulse Pulse Resp BP BP BP 07/19/21 06:00 36.6 C 62 20 107/60 07/19/21 02:05 36.5 C 65 18 07/18/21 22:10 36.6 C 65 20 97/57 L 07/18/21 20:10 72 107/57 L Pulse Ox Pulse Ox 07/19/21 06:00 92 L 07/19/21 02:05 93 L 07/18/21 22:10 93 L 07/18/21 20:10 93 L - Problem List & Annotations (1) Acute respiratory failure with hypoxia SNOMED Code(s): 44484810, 788267990 Code(s): J96.01 - ACUTE RESPIRATORY FAILURE WITH HYPOXIA Status: Acute Current Visit: Yes (2) Hyponatremia SNOMED Code(s): 12250346 Code(s): E87.1 - HYPO-OSMOLALITY AND HYPONATREMIA Status: Acute Current Visit: Yes (3) Pneumonia due to COVID-19 virus SNOMED Code(s): 020715252498010925 Code(s): U07.1 - COVID-19; J12.82 - PNEUMONIA DUE TO CORONAVIRUS DISEASE 2019 Status: Acute Current Visit: Yes - Problem List Review Problem List Initiated/Reviewed/Updated: Yes - My Orders Last 24 Hours: My Active Orders 07/18/21 13:33 Albuterol [Ventolin HFA] See Dose Instructions INH Q4H PRN 07/19/21 06:06 Acetaminophen [TylenoL] 650 mg PO Q4H PRN 07/19/21 07:45 Sodium Chloride 0.9% [Normal Saline] 1,000 ml IV ASDIRECTED 07/19/21 09:00 Enoxaparin [Lovenox] 40 mg SUBCUT Q24H 07/20/21 07:00 CBC W/O DIFF,HEMOGRAM [HEME] Q3D 07/23/21 07:00 CBC W/O DIFF,HEMOGRAM [HEME] Q3D 07/26/21 07:00 CBC W/O DIFF,HEMOGRAM [HEME] Q3D 07/29/21 07:00 CBC W/O DIFF,HEMOGRAM [HEME] Q3D 08/01/21 07:00 CBC W/O DIFF,HEMOGRAM [HEME] Q3D 08/04/21 07:00 CBC W/O DIFF,HEMOGRAM [HEME] Q3D 08/07/21 07:00 CBC W/O DIFF,HEMOGRAM [HEME] Q3D - Plan Plan:: Rachel trejo - pt agrees to start antiviral therapy. Orders placed. Will start lovenox as well. Phone call placed to daughter Bibiana. All questions answered. Daughter agrees with treatment plan.
[2021-07-19] MEDS ORDERED: REMDESIVIR 200 MG in Sodium Chloride 0.9% 250 ML IV ONE ×2 (08:06→09:30)
[2021-07-19] MEDS: dexAMETHasone 2 MG, dexAMETHasone 4 MG PO SCH ×2 (09:17)
[2021-07-19] MEDS: Benzonatate 100 MG Cap PO SCH ×3 (09:17→19:51)
[2021-07-19] MEDS: Spironolactone 25 MG Tab PO SCH (09:17)
[2021-07-19] MEDS: Carvedilol 6.25 MG Tab PO SCH ×2 (09:18→19:51)
[2021-07-19] MEDS: Aspirin 81 MG Tab.Chew PO SCH (09:19)
[2021-07-19] MEDS: Empagliflozin 10 MG Tab PO SCH (09:19)
[2021-07-19] MEDS: Enoxaparin 40 MG/0.4 ML Syringe SUBCUT SCH (09:19)
[2021-07-19] MEDS: Amiodarone 200 MG Tab PO SCH (09:19)
[2021-07-19] MEDS: Sodium Chloride 0.9% 1,000 ML IV SCH (10:14)
[2021-07-19] MEDS: Albuterol HFA 18 Gm Inhaler INH PRN ×2 (12:42→19:52)
[2021-07-19] MEDS: VALSARTAN PO SCH (19:54)
[2021-07-19] MEDS: SACUBITRIL PO SCH (19:54)
[2021-07-19] MEDS: Codeine/guaiFENesin 10-100 MG/5 ML Syrup 5 ML Cup PO PRN (22:52)
[2021-07-20 07:15] LABS: ANION GAP 15.7 mmol/L (5-15); CHLORIDE,CL 100 mmol/L (98-107); SODIUM,NA 133 mmol/L (136-145)
[2021-07-20] MEDS: Aspirin 81 MG Tab.Chew PO SCH (09:15)
[2021-07-20] MEDS: Carvedilol 6.25 MG Tab PO SCH ×2 (09:15→20:30)
[2021-07-20] MEDS: Acetaminophen 325 MG Tab PO PRN (09:16)
[2021-07-20] MEDS: Spironolactone 25 MG Tab PO SCH (09:16)
[2021-07-20] MEDS: Benzonatate 100 MG Cap PO SCH ×3 (09:16→20:33)
[2021-07-20] MEDS: Amiodarone 200 MG Tab PO SCH (09:16)
[2021-07-20] MEDS: Empagliflozin 10 MG Tab PO SCH (09:16)
[2021-07-20] MEDS: dexAMETHasone 2 MG, dexAMETHasone 4 MG PO SCH ×2 (09:16)
[2021-07-20] MEDS: Enoxaparin 40 MG/0.4 ML Syringe SUBCUT SCH (09:17)
[2021-07-20] MEDS: VALSARTAN PO SCH ×2 (09:20→20:32)
[2021-07-20] MEDS: SACUBITRIL PO SCH ×2 (09:20→20:32)
[2021-07-20] MEDS: Codeine/guaiFENesin 10-100 MG/5 ML Syrup 5 ML Cup PO PRN ×2 (09:22→22:20)
[2021-07-20] MEDS: Sodium Chloride 0.9% 1,000 ML IV SCH (10:57)
[2021-07-20 20:34] VITALS: PULSE 65
[2021-07-20] MEDS: Albuterol HFA 18 Gm Inhaler INH PRN (20:36)
--- NOTE | 2021-07-21 00:26 | PN ---
Progress Note for LISANDRA MCMAHON Date: 07/20/2021 Room #: [facility] CHIEF COMPLAINT: Shortness of breath. SUBJECTIVE: Hospital day #4 on an 80-year-old male patient, who was admitted to the acute care floor at [facility] for acute respiratory failure with hypoxia secondary to COVID-19, hyponatremia, COVID-19 pneumonia. The patient states he is very tired this morning. He continues on oxygen at 5 L to keep his saturations greater than 90%. The patient continues to have a dry nonproductive cough. The patient denies any headaches, dizziness, or lightheadedness. He feels short of breath with activity. No chest pain or palpitations. No fevers or chills. The patient has not had any issues with urination or bowel movements. OBJECTIVE: Vital Signs: Temperature 96.5, pulse 60, blood pressure 117/61, respiratory rate 16, oxygen saturation 94% on 5 L. Skin: Intact, warm, and dry. Respiratory: Decreased throughout, otherwise clear. Cardiovascular: AV paced, rate 60. Abdomen: Soft, nontender. Bowel sounds are hypoactive x4. Extremities: Trace edema, bilateral lower extremities. Neurological: The patient is alert. The patient is oriented to person, place, and time. No new focal neurological deficits. LABORATORY STUDIES: 1. CBC: White blood cell count 14.2, hemoglobin 16.3, hematocrit 46.9, platelets 214,000. 2. CMP: Sodium 133, potassium 4.7, chloride 100, CO2 22, anion gap 15.7, BUN 24, creatinine 1.0, GFR greater than 60, glucose 120, calcium 8.1, AST 27, ALT 44, alkaline phosphatase 44. 3. C-reactive protein 14.4. 4. LDH 331. ASSESSMENT: 1. Acute respiratory failure with hypoxia secondary to COVID-19. 2. COVID-19 pneumonia. 3. Hyponatremia. PLAN: An 80-year-old male patient, was admitted to the acute care floor at [facility] for acute respiratory failure with hypoxia secondary to COVID-19. Continue on oxygen to keep saturations greater than 90%. The patient did get 1 dose of remdesivir yesterday; however, he declines any further infusions. Continue on Decadron. Continue on Lovenox. Wean oxygen as tolerated. Recheck laboratory work tomorrow morning. This patient was seen and examined by me as an [facility] provider. TB: 07/20/2021 07:48:29 MODL: 07/21/2021 00:20:22 /[id number]
[2021-07-21 06:37] VITALS: BP 106/56
[2021-07-21] MEDS: Enoxaparin 40 MG/0.4 ML Syringe SUBCUT SCH ×2 (07:28→09:51)
[2021-07-21] MEDS: Carvedilol 6.25 MG Tab PO SCH (07:29)
[2021-07-21] MEDS: Codeine/guaiFENesin 10-100 MG/5 ML Syrup 5 ML Cup PO PRN (07:29)
[2021-07-21] MEDS: dexAMETHasone 2 MG, dexAMETHasone 4 MG PO SCH ×2 (07:29)
[2021-07-21] MEDS: Acetaminophen 325 MG Tab PO PRN (07:29)
[2021-07-21] MEDS: Empagliflozin 10 MG Tab PO SCH (07:30)
[2021-07-21] MEDS: Benzonatate 100 MG Cap PO SCH (07:30)
[2021-07-21] MEDS: Amiodarone 200 MG Tab PO SCH (07:30)
[2021-07-21] MEDS: Spironolactone 25 MG Tab PO SCH (07:30)
[2021-07-21] MEDS: VALSARTAN PO SCH (07:31)
[2021-07-21] MEDS: SACUBITRIL PO SCH (07:31)
[2021-07-21] MEDS: Albuterol HFA 18 Gm Inhaler INH PRN (07:32)
[2021-07-21] MEDS: Aspirin 81 MG Tab.Chew PO SCH (07:34)
[2021-07-21 07:42] LABS: ANION GAP 14.5 mmol/L (5-15); CHLORIDE,CL 103 mmol/L (98-107); SODIUM,NA 135 mmol/L (136-145)
--- NOTE | 2021-07-21 15:11 | DISCH ---
ADMITTING DIAGNOSES: 1. Acute respiratory failure with hypoxia secondary to coronavirus disease-19. 2. Coronavirus disease-19 pneumonia. 3. Hyponatremia. DISCHARGE DIAGNOSES: 1. Acute respiratory failure with hypoxia secondary to coronavirus disease-19. 2. Coronavirus disease-19 pneumonia. 3. Hyponatremia. 4. Supplemental oxygen. HISTORY OF PRESENT ILLNESS: An 80-year-old male patient was admitted to the emergency room on 07/17/2021, for complaints of shortness of breath. The patient was found to be very hypoxic and COVID-19 positive. The patient was admitted acutely for acute respiratory failure and oxygen needs. The patient had been exposed at home to other individuals who were COVID positive. The patient's initial workup in the emergency room showed a sodium of 124. BRIEF HOSPITAL COURSE: The patient's hyponatremia was slowly corrected. The patient did well. He remained hemodynamically stable. Afebrile. The patient did get one dose of remdesivir, and refused the rest. The patient did agree to start on Decadron. The patient was also started on Lovenox. The patient continued to have a dry, nonproductive cough. His shortness of breath has gradually improved. The patient did not have any problems with urination or bowel movements. The patient is feeling somewhat weak. The patient was started on IV fluids for gentle rehydration. CONSULTATIONS: Case Management, Physical Therapy, Occupational therapy. ACTIVITY: As tolerated. DIET: Heart healthy. DISCHARGE LABORATORY WORK: CMP: Sodium 135, potassium 4.5, chloride 103, CO2 of 22, anion gap 14.5, BUN 23, creatinine 1.0, GFR greater than 60, glucose 116, calcium 8.3, AST 21, ALT 35, alkaline phosphatase 43, protein 5.9. DISCHARGE MEDICATIONS: Acetaminophen 650 mg one tablet p.o. every 4 hours as needed, amiodarone 200 mg one tablet p.o. daily, aspirin 81 mg one tablet p.o. daily, carvedilol 25 mg one tablet, p.o. daily, Cheratussin p.o. every 4 hours as needed, dexamethasone 6 mg one tablet p.o. daily x10 days, then stop, Jardiance 10 mg one tablet p.o. daily, latanoprost 1 drop to both eyes at bedtime, Entresto one tablet p.o. twice daily, spironolactone 25 mg one tablet p.o. daily. REVIEW OF SYSTEMS: Constitutional: Negative. Respiratory: Dry nonproductive cough, shortness of breath, improving. Skin: Negative. Cardiovascular: Negative. Abdomen: Negative. Extremities: Negative. Neurological: Negative. DISCHARGE PHYSICAL EXAMINATION: Vital signs: Temperature 97.7, pulse 65, blood pressure 106/56, respirations 20, oxygen saturation 90% on 5 L. Skin: Intact, warm, and dry. Respiratory: Lungs are very decreased throughout, otherwise clear. Cardiovascular: Regular rate and rhythm, no murmur. Abdomen: Soft, nontender. Bowel sounds are hypoactive x4. Extremities: No edema. Neurological: The patient is alert. Patient is oriented to person, place, and time. ASSESSMENT: 1. Acute respiratory failure with hypoxia secondary to coronavirus disease-19. 2. Coronavirus disease-19 pneumonia. 3. Hyponatremia. PLAN: An 80-year-old male patient was admitted to the Acute Care floor at [facility] for the above diagnoses. Patient is discharged home today. The patient will be started on remote patient monitoring through [facility] team. The patient will be sent home on supplemental oxygen. The patient will be seen daily via [facility] provider while he is on the oxygen. We will continue the patient on dexamethasone 6 mg daily for the next 10 days. Continue with Cheratussin as needed for cough. No other changes with medications. The patient is code 2. The patient was discharged in hemodynamically stable condition. The patient agrees with plan of care and wishes to proceed. The [facility] team will contact the patient this afternoon to start his monitoring. This patient was seen and examined by me as an [facility] provider. TB: 07/21/2021 08:59:30 MODL: 07/21/2021 15:05:24 /[id number]
== END 2021-07-21 11:05 | disposition home or self-care (01) | DRG 177 ==
LOC: VM.ED 18:02 → VM.MS 19:51
PROVIDERS: ADMIT Family Medicine; ATTEND Family Medicine
PROC: 3E0DX3Z Introduction of Anti-inflammatory into Mouth and Pharynx, External Approach (ICD-10-PCS; principal; 2021-07-17)
PROC: XW033E5 Introduction of Remdesivir Anti-infective into Peripheral Vein, Percutaneous Approach, New Technology Group 5 (ICD-10-PCS; 2021-07-19)
DX: U07.1 COVID-19 (principal); J96.01 Acute respiratory failure with hypoxia; R09.02 Hypoxemia; J12.82 Pneumonia due to coronavirus disease 2019; I49.9 Cardiac arrhythmia, unspecified; E87.1 Hypo-osmolality and hyponatremia; I50.9 Heart failure, unspecified; I11.0 Hypertensive heart disease with heart failure; E78.00 Pure hypercholesterolemia, unspecified; I42.9 Cardiomyopathy, unspecified; I10 Essential (primary) hypertension; Z95.1 Presence of aortocoronary bypass graft; C18.9 Malignant neoplasm of colon, unspecified; G47.30 Sleep apnea, unspecified; K57.90 Diverticulosis of intestine, part unspecified, without perforation or abscess without bleeding; Z66 Do not resuscitate; Z79.82 Long term (current) use of aspirin; Z79.899 Other long term (current) drug therapy; Z95.810 Presence of automatic (implantable) cardiac defibrillator
CPT/HCPCS: 36415; 71045; 71275; 80048; 80053; 80076; 83605; 83615; 83735; 84100; 85025; 85027; 85379; 85610; 85730; 86140; 87040; 94640; 94760; 99284; 99285-25; A9270-GY; J1650; J7030; J7050; J7613-GY; J8540; U0002

== ENCOUNTER 2021-07-26 21:47 | Inpatient (IN) | payer MEDICARE, BC ==
[2021-07-26] MEDS ORDERED: Ondansetron 8 MG in Sodium Chloride 0.9% 100 ML IV ONE (22:26)
[2021-07-26] MEDS ORDERED: Sodium Chloride 0.9% 500 ML IV ONE (22:26)
--- NOTE | 2021-07-26 22:33 | EDM.PDOC ---
ED HPI GENERAL MEDICAL PROBLEM - General Chief Complaint: General Stated Complaint: THROWING UP;WEAKNESS Time Seen by Provider: 07/26/21 22:15 Source of Information: Reports: Patient, Family History Limitations: Reports: No Limitations - History of Present Illness INITIAL COMMENTS - FREE TEXT/NARRATIVE: 80-year-old white male that presents the ER night with some ongoing weakness over the last several weeks after recently been diagnosed with Covid and being hospitalized for several days he was released last Monday discharged to home. Since then he has been doing okay with just generalized overall weakness his oxygen consumption has decreased from 5 L/min down to 1 L/min as needed with no shortness of breath or respiratory issues since. Tonight approximately about 730 or 8:00 though he had 2 episodes of vomiting and started having hiccups afterwards. He states he told family that he does feels little bit more weak all over. States he ate a normal supper nothing out of the ordinary has drink plenty of fluids today had normal bowel movements with no issues he denies any abdominal pain at this time and states he has been doing quite well. He has recently lost his and his daughter that have passed over the last couple of weeks. Duration: Hour(s): Severity: Mild Associated Symptoms: Reports: Cough, Nausea/Vomiting, Weakness, Other (Cough is been ongoing for several weeks now secondary to Covid). Denies: Confusion, Chest Pain, Headaches, Loss of Appetite, Shortness of Breath, Syncope - Related Data Allergies Allergy/AdvReac Type Severity Reaction Status Date / Time No Known Drug Allergies Allergy Other Verified 07/17/21 18:37 Home Meds: Home Meds Latanoprost [Xalatan 0.005% Oph Soln] 2.5 ml OP BEDTIME 05/28/14 [History] carvediloL [Coreg] 25 mg PO BID 05/28/14 [History] Aspirin 81 mg PO DAILY 09/03/16 [History] Amiodarone HCl [Pacerone] 200 mg PO DAILY 07/17/21 [History] Collins Flavor [Collins Concentrate] 100 ml PO ASDIRECTED 07/17/21 [History] Empagliflozin [Jardiance] 10 mg PO DAILY 07/17/21 [History] Sacubitril/Valsartan [Entresto 24 mg-26 mg Tablet] 0.5 each PO BID 07/17/21 [History] Spironolactone [Aldactone] 25 mg PO DAILY 07/17/21 [History] Past Medical History Cardiovascular History: Reports: Arrhythmia, Automatic Implantable Cardioverter Defibrillators, Hypertension Other Cardiovascular History: paroxysmal vtach Respiratory History: Reports: Sleep Apnea Gastrointestinal History: Reports: Diverticulosis Oncologic (Cancer) History: Reports: Colon - Infectious Disease History Infectious Disease History: Reports: Novel Coronavirus - Past Surgical History Cardiovascular Surgical History: Reports: AICD, Coronary Artery Bypass ED ROS GENERAL - Review of Systems Review Of Systems: See Below Constitutional: Reports: Weakness. Denies: Fever, Chills, Malaise, Fatigue, Night Sweats, Diaphoresis, Decreased Appetite, Weight Loss HEENT: Reports: No Symptoms Respiratory: Reports: Cough Cardiovascular: Reports: No Symptoms Endocrine: Reports: No Symptoms GI/Abdominal: Reports: Nausea, Vomiting. Denies: Abdominal Pain, Black Stool, Bloody Stool, Constipation, Diarrhea, Decreased Appetite, Distension, Flatus, Hematemesis, Hematochezia, Stool Incontinence : Reports: No Symptoms Musculoskeletal: Reports: No Symptoms Skin: Reports: No Symptoms Neurological: Reports: Weakness. Denies: Confusion, Dizziness, Headache, Numbness, Syncope, Tingling Psychiatric: Reports: No Symptoms Hematologic/Lymphatic: Reports: No Symptoms Immunologic: Reports: No Symptoms ED EXAM, GENERAL - Physical Exam Exam: See Below Exam Limited By: No Limitations General Appearance: Alert, WD/WN, No Apparent Distress, Other (Patient looks well talkative friendly but is noted to be hard of hearing secondary to not having his hearing aid) Eye Exam: Bilateral Eye: EOMI, Normal Inspection, PERRL Ears: Normal External Exam, Normal Canal, Normal TMs. No: Hearing Grossly Normal Nose: Normal Inspection, Normal Mucosa, No Blood Throat/Mouth: Normal Inspection, Normal Lips, Normal Teeth, Normal Gums, Normal Oropharynx, Normal Voice, No Airway Compromise, Other (Dry mucous membranes noted) Head: Atraumatic, Normocephalic Neck: Normal Inspection, Supple, Non-Tender, Full Range of Motion Respiratory/Chest: No Respiratory Distress, Lungs Clear, Normal Breath Sounds, No Accessory Muscle Use, Chest Non-Tender Cardiovascular: Normal Peripheral Pulses, Regular Rate, Rhythm, No Edema, No Gallop, No JVD, No Murmur, No Rub GI/Abdominal: Normal Bowel Sounds, Soft, Non-Tender, No Organomegaly, No Distention, No Abnormal Bruit, Other (Normal bowel sounds no peritoneal signs or symptoms). No: Guarding, Rigid, Rebound, Tender Extremities: Normal Inspection, Normal Range of Motion, Non-Tender, Normal Capillary Refill, Other (+1 bilateral pedal edema). No: No Pedal Edema Neurological: Alert, Oriented, CN II-XII Intact, Normal Cognition Psychiatric: Normal Affect, Normal Mood Skin Exam: Warm, Dry, Intact, Normal Color, No Rash Lymphatic: No Adenopathy Course - Vital Signs Text/Narrative:: We will check CBC BMP troponin EKG 1 L normal saline bolus with 8 mg Zofran IV White count 28,000 we will check lactic acid CRP chest x-ray urinalysis Lactic acid within normal limits sodium noted to be 126 Patient will be admitted given IV antibiotics recheck lab work in the morning discussed the case with Tano Lucia he is okay with admission meds hold fluids see if hyponatremia corrects Discussed CODE STATUS with the patient he is DNR/DNI but he is okay with course of treatment with antibiotics he does not want anything invasive done Chest x-ray no acute findings flatplate though appears to have multiple air- fluid levels with bowel obstruction Spoke with Dr. Ha surgery at [facility] secondary to no beds availability he recommend obtaining a CT chest abdomen pelvis hold the patient to beds become available covered with broad-spectrum antibiotics if anything changes call back Last Recorded V/S: Last Vital Signs Temp 36.9 C 07/26/21 22:15 Pulse 63 07/26/21 22:15 Resp 18 07/26/21 22:15 BP 146/94 H 07/26/21 22:15 Pulse Ox 96 07/26/21 22:15 - Orders/Labs/Meds Orders: Active Orders 24 hr Category Date Time Status Patient Status [ADT] Stat ADT 07/26/21 23:57 Active Abdomen 1V Upright [CR] Stat Exams 07/26/21 23:21 Taken Chest 1V Frontal [CR] Stat Exams 07/26/21 23:06 Taken CULTURE BLOOD [BC] Routine Lab 07/26/21 22:50 Received Labs: Laboratory Tests 07/26/21 07/26/21 07/26/21 Range/Units 22:15 22:15 22:15 WBC 28.9 H* (4.0-10.0) x10^3/uL RBC 5.78 (4.5-6.0) x10^6/uL Hgb 17.1 (14.0-18.0) g/dL Hct 48.6 (40.0-52.0) % MCV 84.1 (78.0-93.0) fL MCH 29.6 (26.0-32.0) pg MCHC 35.2 (32.0-36.0) g/dL RDW Coeff of Rose 12.6 (10.0-15.0) % Plt Count 159 (130-400) x10^3/uL Add Manual Diff Yes Neutrophils % (Manual) 88 H (50-80) % Band Neutrophils % 4 (0-6) % Lymphocytes % (Manual) 1 L (25-50) % Reactive Lymphs % 3 H (0) % Monocytes % (Manual) 4 (2-11) % Absolute Neutrophils 26.6 H (1.8-7.7) x10^3/uL Lymphocytes # (Manual) 1.2 (1.0-4.8) x10^3/uL Monocytes # (Manual) 1.2 H (0.0-0.8) x10^3/uL Hypersegmented Neuts Few H Vacuolated Monocytes 2+ moderate H Toxic Granulation 2+ moderate H Platelet Estimate Adequate Sodium 126 L* (136-145) mmol/L Potassium 4.8 (3.5-5.1) mmol/L Chloride 93 L (98-107) mmol/L Carbon Dioxide 23 (21-32) mmol/L Anion Gap 14.8 (5-15) mmol/L BUN 23 H (7-18) mg/dL Creatinine 0.9 (0.70-1.30) mg/dL Est Cr Clr Drug Dosing TNP Estimated GFR (MDRD) > 60 Glucose 184 H (70-99) mg/dL Lactic Acid (0.4-2.0) mmol/L Calcium 8.3 L (8.5-10.1) mg/dL Troponin I High Sens 12 (<=76) ng/L C-Reactive Protein < 0.2 (<=0.9) mg/dL Urine Color (YELLOW) Urine Appearance (CLEAR) Urine pH (5.0-8.0) Ur Specific [place] Urine Protein (NEGATIVE) mg/dL Urine Glucose (UA) (NEGATIVE) mg/dL Urine Ketones (NEGATIVE) mg/dL Urine Occult Blood (NEGATIVE) Urine Nitrite (NEGATIVE) Urine Bilirubin (NEGATIVE) Urine Urobilinogen (0.2) EU/dL Ur Leukocyte Esterase (NEGATIVE) U Hyaline Cast (Auto) Urine RBC (NOT SEEN) /HPF Urine WBC (NOT SEEN) /HPF Ur Squamous Epith Cells (NOT SEEN) /HPF Urine Bacteria (NOT SEEN) /HPF Urine Mucus (NOT SEEN) /LPF 07/26/21 07/26/21 Range/Units 22:50 23:53 WBC (4.0-10.0) x10^3/uL RBC (4.5-6.0) x10^6/uL Hgb (14.0-18.0) g/dL Hct (40.0-52.0) % MCV (78.0-93.0) fL MCH (26.0-32.0) pg MCHC (32.0-36.0) g/dL RDW Coeff of Rose (10.0-15.0) % Plt Count (130-400) x10^3/uL Add Manual Diff Neutrophils % (Manual) (50-80) % Band Neutrophils % (0-6) % Lymphocytes % (Manual) (25-50) % Reactive Lymphs % (0) % Monocytes % (Manual) (2-11) % Absolute Neutrophils (1.8-7.7) x10^3/uL Lymphocytes # (Manual) (1.0-4.8) x10^3/uL Monocytes # (Manual) (0.0-0.8) x10^3/uL Hypersegmented Neuts Vacuolated Monocytes Toxic Granulation Platelet Estimate Sodium (136-145) mmol/L Potassium (3.5-5.1) mmol/L Chloride (98-107) mmol/L Carbon Dioxide (21-32) mmol/L Anion Gap (5-15) mmol/L BUN (7-18) mg/dL Creatinine (0.70-1.30) mg/dL Est Cr Clr Drug Dosing Estimated GFR (MDRD) Glucose (70-99) mg/dL Lactic Acid 1.1 (0.4-2.0) mmol/L Calcium (8.5-10.1) mg/dL Troponin I High Sens (<=76) ng/L C-Reactive Protein (<=0.9) mg/dL Urine Color Dark yellow H (YELLOW) Urine Appearance Clear (CLEAR) Urine pH 5.5 (5.0-8.0) Ur Specific [place] 1.015 Urine Protein Negative (NEGATIVE) mg/dL Urine Glucose (UA) 500 H (NEGATIVE) mg/dL Urine Ketones 15 H (NEGATIVE) mg/dL Urine Occult Blood Negative (NEGATIVE) Urine Nitrite Negative (NEGATIVE) Urine Bilirubin Negative (NEGATIVE) Urine Urobilinogen 1.0 (0.2) EU/dL Ur Leukocyte Esterase Negative (NEGATIVE) U Hyaline Cast (Auto) Rare Urine RBC 0-5 (NOT SEEN) /HPF Urine WBC 0-5 (NOT SEEN) /HPF Ur Squamous Epith Cells Rare (NOT SEEN) /HPF Urine Bacteria Not seen (NOT SEEN) /HPF Urine Mucus Not seen (NOT SEEN) /LPF Meds: Medications Discontinued Medications Generic Name Dose Route Start Last Admin Trade Name Freq PRN Reason Stop Dose Admin Ceftriaxone Sodium 1 gm 07/26/21 23:56 Ceftriaxone 1 Gm Vial IVPUSH 07/26/21 23:57 STAT ONE Ondansetron HCl 8 mg/ Sodium 104 mls @ 400 mls/hr 07/26/21 22:26 Chloride IV 07/26/21 22:41 ONETIME ONE Sodium Chloride 500 mls @ 500 mls/hr 07/26/21 22:26 Normal Saline IV 07/26/21 23:25 ONETIME ONE Departure - Departure Time of Disposition: 23:55 Disposition: Admitted As Inpatient 65 Clinical Impression: Leukocytosis, Hyponatremia, Weakness, Bowel obstruction - Discharge Information *PRESCRIPTION DRUG MONITORING PROGRAM REVIEWED*: No *COPY OF PRESCRIPTION DRUG MONITORING REPORT IN PATIENT [place]: No Referrals: Kary May DO [Primary Care Provider] - Forms: ED Department Discharge Sepsis Event Note (ED) - Evaluation Sepsis Screening Result: No Definite Risk - Focused Exam Vital Signs: Vital Signs Temp Pulse Resp BP Pulse Ox 07/26/21 22:15 36.9 C 63 18 146/94 H 96 - Problem List & Annotations (1) Hyponatremia SNOMED Code(s): 29852217 Code(s): E87.1 - HYPO-OSMOLALITY AND HYPONATREMIA Status: Acute Current Visit: Yes (2) Acute respiratory failure with hypoxia SNOMED Code(s): 25573896, 915581409 Code(s): J96.01 - ACUTE RESPIRATORY FAILURE WITH HYPOXIA Status: Acute Current Visit: No (3) Leukocytosis SNOMED Code(s): 263826973, 466584020 Code(s): D72.829 - ELEVATED WHITE BLOOD CELL COUNT, UNSPECIFIED Status: Acute Current Visit: Yes (4) Weakness SNOMED Code(s): 90701710 Code(s): R53.1 - WEAKNESS Status: Acute Current Visit: Yes - My Orders Last 24 Hours: My Active Orders 07/26/21 22:50 CULTURE BLOOD [BC] Routine 07/26/21 23:06 Chest 1V Frontal [CR] Stat 07/26/21 23:21 Abdomen 1V Upright [CR] Stat 07/26/21 23:57 Patient Status [ADT] Stat - Assessment/Plan Last 24 Hours: My Active Orders 07/26/21 22:50 CULTURE BLOOD [BC] Routine 07/26/21 23:06 Chest 1V Frontal [CR] Stat 07/26/21 23:21 Abdomen 1V Upright [CR] Stat 07/26/21 23:57 Patient Status [ADT] Stat
[2021-07-26 22:37] LABS: CHLORIDE,CL 93 mmol/L (98-107)
[2021-07-26 22:39] LABS: ANION GAP 14.8 mmol/L (5-15)
[2021-07-26 22:41] LABS: SODIUM,NA 126 mmol/L (136-145)
[2021-07-26] MEDS ORDERED: cefTRIAXone 1 GM Vial IVPUSH ONE (23:56)
[2021-07-27] MEDS ORDERED: Ondansetron 4 MG/2 ML SDV ONE (01:33)
[2021-07-27] MEDS ORDERED: Ondansetron 4 MG/2 ML SDV IV PRN (01:49)
[2021-07-27] MEDS ORDERED: Morphine 2 MG/ML SYRINGE IVPUSH PRN (01:56)
[2021-07-27] MEDS ORDERED: Sodium Chloride 0.9% 1,000 ML IV SCH (02:00)
[2021-07-27] MEDS: Piperacillin/Tazobactam 4.5 GM in Sodium Chloride 0.9% 100 ML IV SCH ×4 (02:47→18:22)
[2021-07-27] MEDS: Metoclopramide 10 MG/2 ML SDV IVPUSH SCH ×4 (02:49→19:37)
[2021-07-27] MEDS: cefTRIAXone 1 GM Vial IVPUSH SCH (03:42)
[2021-07-27] MEDS: Pantoprazole 40 MG Vial IVPUSH SCH ×2 (06:53→18:09)
[2021-07-27 07:07] LABS: CHLORIDE,CL 95 mmol/L (98-107)
[2021-07-27 07:09] LABS: SODIUM,NA 128 mmol/L (136-145)
--- NOTE | 2021-07-27 07:42 | CR ---
[id number] RAD/RAD Chest PA or AP 1V EXAM: SINGLE VIEW CHEST. INDICATION: ELEVATED WHITE BLOOD CELL COUNT COMPARISON: CORRELATION IS MADE WITH JULY 17, 2021 FINDINGS: There is an early left upper lobe infiltrate The lungs otherwise are clear The cardiomediastinal contour is stable IMPRESSION: APPEARANCE OF EARLY LEFT UPPER LOBE INFILTRATE Alex Montes MD 07/27/21 0740 Thank you for allowing us to participate in the care of your patient.
--- NOTE | 2021-07-27 07:44 | CR ---
[id number] RAD/RAD Abdomen Flat Plate 1V Exam: RAD Abdomen Flat Plate 1V Clinical Data: ELEVATED WHITE BLOOD CELL COUNT COMPARISON: CORRELATION IS MADE WITH THE CAT SCAN TO FOLLOW FINDINGS: There is moderate large and small bowel distention The pelvis is not entirely imaged There is no organomegaly or pathologic calcification IMPRESSION: MILD ILEUS Alex Montes MD 07/27/21 2770 Thank you for allowing us to participate in the care of your patient.
[2021-07-27] MEDS: Carvedilol 6.25 MG Tab PO SCH ×2 (07:47→20:15)
--- NOTE | 2021-07-27 07:47 | CT ---
[id number] CT/CT Chest Abdomen Pelvis W IV Exam: CT Chest Abdomen Pelvis W IV Clinical Data: SUSPECTED BOWEL OBSTRUCTION COMPARISON: CORRELATION IS MADE WITH JULY 17, 2021 FINDINGS: Bilateral peripheral infiltrates are seen The patient is COVID positive There is no mediastinal mass or adenopathy There is significant gastric distention There are gallstones. 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 There is small bowel distention There is thickening of the wall of the distal small bowel. The transverse colon and ascending colon are dilated The descending colon is not dilated The pelvis shows no mass or adenopathy There are surgical clips in the region of the right side of the large bowel There is no free air. The liver and spleen, adrenals, aorta, kidneys, pancreas otherwise are unremarkable IMPRESSION: APPEARANCE OF OBSTRUCTING LESION SPLENIC FLEXURE OF LARGE BOWEL SURGICAL CLIPS RIGHT SIDE LARGE BOWEL SMALL BOWEL DISTENTION THICKENING OF WALL DISTAL SMALL BOWEL SURGICAL CONSULTATION NEEDED. REPORT PROVIDED AT TIME OF EXAM Alex Montes MD 07/27/21 0746 Thank you for allowing us to participate in the care of your patient.
[2021-07-27] MEDS: Amiodarone 200 MG Tab PO SCH (07:48)
[2021-07-27] MEDS: Spironolactone 25 MG Tab PO SCH (07:48)
[2021-07-27] MEDS: Empagliflozin 10 MG Tab PO SCH (07:48)
[2021-07-27] MEDS ORDERED: Codeine/guaiFENesin 10-100 MG/5 ML Syrup 5 ML Cup PO PRN (07:51)
[2021-07-27] MEDS: Sacubitril/Valsartan [Entresto 24 Mg-26 Mg Tablet] PO SCH ×2 (11:00→20:16)
[2021-07-27] MEDS ORDERED: Iopamidol 612 MG/ML 100 ML Bottle IVPUSH ONE (11:08)
--- NOTE | 2021-07-27 19:20 | HP ---
Admission history and physical to the acute care floor at [facility]. CHIEF COMPLAINT: 1. Vomiting. 2. Weakness. HISTORY OF PRESENT ILLNESS: This is an 80-year-old male patient, who presented to the emergency room at [facility] last evening for ongoing weakness over the past several weeks after he was recently diagnosed with COVID-19 on 07/17/2021. The patient was hospitalized for 5 days and discharged home under the care of the [facility] COVID team. The patient had been monitored at home. The patient was seen remotely earlier this morning and seemed to be doing fine. He was on 1.5 L of oxygen with saturations between 92% to 94%. However, the patient started having vomiting last evening with hiccups afterward. He had told the family he felt very weak all over. He was able to eat supper and drink fluids. The patient did not have any fevers or chills that he was aware. The patient had generalized abdominal discomfort. No diarrhea. The patient did not have any headaches, dizziness, or lightheadedness. No chest pain or palpitations. The patient denied any shortness of breath. The patient has a post COVID cough. No change in any medicines. The patient has been doing well from a COVID-19 standpoint. The patient had been weaning his oxygen nicely. PAST MEDICAL HISTORY: 1. Coronary atherosclerosis. 2. Congestive heart failure, NYHA class 2. 3. Malignant tumor of the colon. 4. History of CABG x4. 5. Paroxysmal ventricular tachycardia. 6. Obstructive sleep apnea. 7. Hypercholesteremia. 8. Essential hypertension. 9. AICD. 10.Cholelithiasis. 11.Diverticulosis. PAST SURGICAL HISTORY: 1. Cardiac defibrillator placement. 2. Coronary artery bypass graft. FAMILY HISTORY: Noncontributory. SOCIAL HISTORY: The patient does not drink alcohol. The patient does not use any illegal drugs. The patient has never been a cigarette smoker. The patient was recently . LABORATORY STUDIES: 1. CBC: White blood cell count 26.1, hemoglobin 16.6, hematocrit 48.1, platelets 152,000. 2. CMP: Sodium 128, potassium 5.0, chloride 95, CO2 26, anion gap 12, BUN 27, creatinine 1.0, GFR greater than 60, glucose 121, calcium 8.0, AST 15, ALT 33, alkaline phosphatase 36, total protein 5.3. 3. Lactic acid 1.0. 4. C-reactive protein less than 0.2. MEDICATIONS: 1. Amiodarone 200 mg p.o. daily. 2. Carvedilol 25 mg 1 tablet p.o. twice daily. 3. Jardiance 10 mg 1 tablet p.o. daily. 4. Latanoprost 1 drop to both eyes at bedtime. 5. Entresto 0.5 tablet p.o. twice daily. 6. Spironolactone 25 mg 1 tablet p.o. daily. REVIEW OF SYSTEMS: See HPI. PHYSICAL EXAMINATION: Vital Signs: Height 5 feet 8 inches, weight 196 pounds, temperature 96.3, pulse 59, blood pressure 124/67, respiratory rate 20, oxygen saturation 96% on 2 L. Skin: Intact, warm, and dry. Respiratory: Lungs are decreased throughout, otherwise clear. Cardiovascular: Regular rate and rhythm, no murmur. Abdomen: NG tube in place. Bowel sounds are hypoactive x4. Abdomen is generally tender. Extremities: +2 dependent lower pitting edema bilaterally. Neurological: The patient is alert. The patient is oriented to person, place, and time. No focal neurological deficits. ASSESSMENT: 1. Small bowel obstruction. 2. Hyponatremia. 3. Supplemental oxygen dependent secondary to COVID-19. 4. Leukocytosis. 5. Weakness. 6. Coronary atherosclerosis. 7. Congestive heart failure, NYHA class 2. 8. Malignant tumor of colon. 9. Obstructive sleep apnea. 10.Hypercholesteremia. 11.Essential hypertension. 12.AICD. PLAN: An 80-year-old male patient, was admitted to the acute care floor at [facility] for small bowel obstruction. NG has been placed. The patient is n.p.o. The patient will be started on Reglan 10 mg every 6 hours. Continue on IV Protonix for GI prophylaxis. Continue on Zosyn and Rocephin as ordered by the ER provider. Will gently rehydrate the patient over the next few hours and then stop IV fluids. The patient will be given 20 mg of IV Lasix for dependent edema, Zofran IV for nausea. This case was discussed with Dr. Omar Zazueta, general surgeon, [facility]. CT scan and patient condition reviewed and discussed. The patient is not a surgical candidate at this point. Recommendation; if the patient is not better over the next 2 to 3 days, he may need transfer to a higher level of care. We will trial clamping the NG tube depending upon the output. The patient is a code 2. Recheck laboratory work tomorrow morning. This patient was seen and examined by me as an [facility] provider. TB: 07/27/2021 18:40:46 MODL: 07/27/2021 19:15:05 /[id number]
[2021-07-27] MEDS: Latanoprost 0.005% Ophth Soln 2.5 ML Bottle EYEBOTH SCH (19:43)
[2021-07-28] MEDS: Piperacillin/Tazobactam 4.5 GM in Sodium Chloride 0.9% 100 ML IV SCH ×2 (00:29→06:21)
[2021-07-28] MEDS: Metoclopramide 10 MG/2 ML SDV IVPUSH SCH ×4 (02:55→19:53)
[2021-07-28] MEDS: cefTRIAXone 1 GM Vial IVPUSH SCH (03:10)
[2021-07-28] MEDS: Pantoprazole 40 MG Vial IVPUSH SCH ×2 (06:21→18:32)
[2021-07-28 07:43] LABS: CHLORIDE,CL 99 mmol/L (98-107); SODIUM,NA 133 mmol/L (136-145)
[2021-07-28 07:44] LABS: ANION GAP 9.8 mmol/L (5-15)
[2021-07-28] MEDS: Spironolactone 25 MG Tab PO SCH (08:59)
[2021-07-28] MEDS: Empagliflozin 10 MG Tab PO SCH (08:59)
[2021-07-28] MEDS: Amiodarone 200 MG Tab PO SCH (08:59)
[2021-07-28] MEDS: Carvedilol 6.25 MG Tab PO SCH ×2 (09:00→19:52)
[2021-07-28] MEDS: Sacubitril/Valsartan [Entresto 24 Mg-26 Mg Tablet] PO SCH ×2 (09:07→19:52)
--- NOTE | 2021-07-28 09:57 | CR ---
[id number] RAD/RAD Abd Flat and Upright 2V EXAM: RAD Abd Flat and Upright 2V INDICATION: SBO. COMPARISON: CT from yesterday. Discussion/Impression: Dilated and distended loops of small bowel throughout the abdomen. Air-fluid levels on the upright view. Findings are consistent with some degree of partial small bowel obstruction. NG tube in place correlating with CT from yesterday. Tip again projects over the gastroesophageal junction. Consider advancement of at least 12 cm for placement in the stomach. Omar Fragsoo MD 07/28/21 0955 Thank you for allowing us to participate in the care of your patient.
[2021-07-28] MEDS: Piperacillin/Tazobactam 3.375 GM in Sodium Chloride 0.9% 100 ML IV SCH ×3 (12:27→23:36)
[2021-07-28] MEDS: Sodium Chloride 0.9% 10 ML Syringe FLUSH PRN ×2 (18:34→19:58)
[2021-07-28] MEDS: Latanoprost 0.005% Ophth Soln 2.5 ML Bottle EYEBOTH SCH (19:52)
--- NOTE | 2021-07-29 00:28 | PN ---
Progress Note for LISANDRA MCMAHON Date: 07/28/2021 Room #: [facility]214 CHIEF COMPLAINT: 1. Vomiting. 2. Weakness. HISTORY OF PRESENT ILLNESS: Hospital day #2 for an 80-year-old male patient, who was admitted to the acute care floor at [facility] for a small bowel obstruction, nausea, vomiting. The patient states he is feeling better today. He did have 2 bowel movements last evening, which really helped. He has not had any nausea since admission. No vomiting. Very little output through the NG. The patient did have clear liquids this morning and tolerated it just fine. The patient has not had any fevers or chills. He denies any headaches, dizziness, or lightheadedness. No chest pain or palpitations. No shortness of breath or cough. Continuing to wean oxygen. The patient denies any abdominal pain. No diarrhea. REVIEW OF SYSTEMS: See HPI. PHYSICAL EXAMINATION: Vital Signs: Weight 196 pounds. Temperature 98.2, pulse 61, blood pressure 114/61, respiratory rate 18, oxygen saturation 93% on 2 L. Skin: Intact, warm, and dry. Respiratory: Lungs are decreased, but clear throughout. Cardiovascular: Regular rate and rhythm, no murmur. Abdomen: Soft, bowel sounds are normoactive x4, nontender. Extremities: +1 dependent bilateral lower extremity edema. Neurological: The patient is alert. The patient is oriented to person, place, and time. LABORATORY STUDIES: 1. CBC: White blood cell count 18.1, hemoglobin 15.0, hematocrit 44.2, platelets 113,000. 2. CMP: Sodium 133, potassium 4.8, chloride 99, CO2 29, anion gap 9.8, BUN 30, creatinine 1.1. GFR greater than 60, glucose 82, calcium 7.4, AST 13, ALT 25, alkaline phosphatase 32, protein 4.8. ASSESSMENT: 1. Small bowel obstruction. 2. Hyponatremia. 3. Leukocytosis. 4. Weakness. 5. Supplemental oxygen dependence secondary to COVID-19. 6. Coronary atherosclerosis. 7. Congestive heart failure, NYHA a class 2. 8. Malignant tumor of the colon. 9. Obstructive sleep apnea. 10.Hypercholesterolemia. 11.Essential hypertension. 12.Automatic implantable cardioverter defibrillator. PLAN: Hospital day #2 on an 80-year-old male patient, who was admitted to acute care floor at [facility] for the above diagnoses. Continue with Reglan. We will recheck an abdominal x-ray today. Advance diet as tolerated. Wean oxygen aggressively today. Hopefully, the patient will be able to get up and get out of bed and get moving. Continue with IV Zofran. Continue with IV antibiotics. The patient is a code 2. We will recheck laboratory work tomorrow morning. This patient was seen and examined by me as an [facility] provider. TB: 07/28/2021 09:05:45 MODL: 07/29/2021 00:20:38 /[id number]
[2021-07-29] MEDS: Metoclopramide 10 MG/2 ML SDV IVPUSH SCH ×4 (01:56→20:32)
[2021-07-29] MEDS: cefTRIAXone 1 GM Vial IVPUSH SCH (04:30)
[2021-07-29] MEDS: Piperacillin/Tazobactam 3.375 GM in Sodium Chloride 0.9% 100 ML IV SCH ×2 (05:31→12:20)
[2021-07-29] MEDS: Pantoprazole 40 MG Vial IVPUSH SCH ×2 (06:19→18:11)
[2021-07-29] MEDS ORDERED: Furosemide 20 MG/2 ML VIAL IV ONE (07:27)
[2021-07-29] MEDS: Sodium Chloride 0.9% 10 ML Syringe FLUSH PRN (07:55)
[2021-07-29 08:24] LABS: CHLORIDE,CL 103 mmol/L (98-107); SODIUM,NA 136 mmol/L (136-145)
[2021-07-29] MEDS: Empagliflozin 10 MG Tab PO SCH (08:59)
[2021-07-29] MEDS: Spironolactone 25 MG Tab PO SCH (08:59)
[2021-07-29] MEDS: Amiodarone 200 MG Tab PO SCH (09:00)
[2021-07-29] MEDS: Sacubitril/Valsartan [Entresto 24 Mg-26 Mg Tablet] PO SCH ×2 (09:00→20:36)
[2021-07-29] MEDS: Carvedilol 6.25 MG Tab PO SCH ×2 (09:00→20:32)
[2021-07-29] MEDS ORDERED: Iopamidol 612 MG/ML 100 ML Bottle IVPUSH ONE (11:00)
--- NOTE | 2021-07-29 11:56 | CT ---
[id number] CT/CT Chest Abdomen Pelvis W IV EXAM: CHEST ABDOMEN AND PELVIS CT WITH CONTRAST INDICATION: Small bowel obstruction, shortness of breath, and abdominal pain. COMPARISON: July 27, 2021. DISCUSSION: Scattered groundglass opacities and small foci of consolidation throughout both lungs are similar to the July 27, 2021 exam but has improved relative to July 17, 2021. No new consolidation is seen. Stable cardiomegaly. 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 Left subclavian approach pacemaker leads RA and RV. Nasogastric tube tip at the gastroesophageal junction. Prior sternotomy. Interval emptying or decompression of the stomach. There is mild apparent mural edema/thickening at the pylorus which could be from focal gastritis, ulcer disease or neoplasm. Endoscopy may be useful for further characterization. The gallbladder contains stones and there is trace fluid between the gallbladder and the liver. Ultrasound may be useful to further evaluate for cholecystitis. 32 mm simple appearing cyst right kidney. Tiny nonobstructing right intrarenal calculi. There is mild persistent small bowel dilation with transition left upper quadrant (image 90 series 9), but improvement relative to the prior study. Evidence of prior proximal colon resection with anastomosis in the right upper quadrant. Stable small volume ascites. No pneumatosis or free air. Scattered diverticula of the colon without evidence of diverticulitis. Degenerative changes in the spine and hips. IMPRESSION: 1. There is a small bowel obstruction with mild dilation of the proximal small bowel. Overall, degree of small bowel dilation has improved relative to the prior study. 2. Cholelithiasis. Small volume fluid adjacent to the gallbladder. Consider ultrasound if there is clinical suspicion for cholecystitis. 3. Multifocal groundglass opacities and mild consolidation without significant interval change. 4. Nasogastric tube tip gastroesophageal junction. Consider advancement 10 cm. Mild apparent mural thickening in the distal stomach. Endoscopy may be useful. Perico Longoria MD 07/29/21 [id number] Thank you for allowing us to participate in the care of your patient.
[2021-07-29] MEDS ORDERED: Phenol/Sodium Phenolate Spray 180 ML Bottle PO PRN (15:28)
[2021-07-29] MEDS: Latanoprost 0.005% Ophth Soln 2.5 ML Bottle EYEBOTH SCH (20:36)
--- NOTE | 2021-07-30 01:37 | PN ---
Progress Note for LISANDRA MCMAHON Date: 07/29/2021 Room #: [facility]214 CHIEF COMPLAINT: 1. Weakness. 2. Vomiting. HISTORY OF PRESENT ILLNESS: Hospital day #3 on an 80-year-old male patient, who was admitted to the acute care floor at [facility] for small bowel obstruction, nausea, vomiting. The patient is feeling better today. He is off oxygen, saturating 94% to 96% on room air. The patient continues with an NG with scant amount of output. Abdomen is feeling somewhat better. He is tolerating clear liquids. The patient is having normal bowel movements. He is passing gas. He has had no nausea or vomiting since admission. No fevers or chills. The patient denies any headaches, dizziness, or lightheadedness. No shortness of breath or cough. No chest pain or palpitations. The patient is up 4 pounds in weight. REVIEW OF SYSTEMS: See HPI. PHYSICAL EXAMINATION: Vital Signs: Weight 201 pounds, temperature 97.4, pulse 60, blood pressure 121/55, respiratory rate 18, oxygen saturation 96% on room air. Skin: Intact, warm and dry. Respiratory: Lungs are decreased, but clear throughout. Cardiovascular: Regular rate and rhythm, no murmur. Abdomen: Soft, nontender, bowel sounds are normoactive x4. Extremities: +2 dependent pitting edema, lower extremities. Neurological: The patient is alert. The patient is oriented to person, place, and time. No focal neurological deficits. LABORATORY STUDIES: 1. CBC: White blood cell count 12.7, hemoglobin 13.8, hematocrit 40.6, platelets 89,000. 2. CMP - Results pending. ASSESSMENT: 1. Small bowel obstruction. 2. Hyponatremia - improving. 3. Leukocytosis - improving. 4. Weakness. 5. Supplemental oxygen dependence secondary to COVID-19 - resolved. 6. Coronary atherosclerosis. 7. Congestive heart failure, NYHA class 2. 8. Malignant tumor of the colon. 9. Obstructive sleep apnea. 10.Hypercholesterolemia. 11.Essential hypertension. 12.Automatic implantable cardioverter defibrillator. PLAN: Hospital day #3 on an 80-year-old male patient, who was admitted to the acute care floor for the above diagnoses. We will give the patient 20 mg of IV Lasix for his weight gain. We will clamp the NG. If the patient tolerates clamping the NG, may consider discontinuing it. Advance diet as tolerated. We will recheck a CT of the abdomen and pelvis to re-evaluate the small bowel obstruction. Recheck laboratory work tomorrow morning. May consider discharge home tomorrow depending upon how the patient does today. Continue with IV antibiotics through today and then discontinue. This patient was seen and examined by me as an [facility] provider. TB: 07/29/2021 07:47:40 MODL: 07/30/2021 01:25:02 /[id number]
[2021-07-30] MEDS: Sodium Chloride 0.9% 10 ML Syringe FLUSH PRN ×2 (02:20→06:03)
[2021-07-30] MEDS: Metoclopramide 10 MG/2 ML SDV IVPUSH SCH ×4 (02:20→19:50)
[2021-07-30] MEDS: Pantoprazole 40 MG Vial IVPUSH SCH ×2 (06:02→18:30)
[2021-07-30 07:44] LABS: ANION GAP 10.7 mmol/L (5-15); CHLORIDE,CL 104 mmol/L (98-107); SODIUM,NA 138 mmol/L (136-145)
[2021-07-30] MEDS: Spironolactone 25 MG Tab PO SCH (07:55)
[2021-07-30] MEDS: Carvedilol 6.25 MG Tab PO SCH ×2 (07:55→19:50)
[2021-07-30] MEDS: Empagliflozin 10 MG Tab PO SCH (07:55)
[2021-07-30] MEDS: Amiodarone 200 MG Tab PO SCH (07:55)
[2021-07-30] MEDS: Sacubitril/Valsartan [Entresto 24 Mg-26 Mg Tablet] PO SCH ×2 (07:57→19:52)
[2021-07-30] MEDS: Latanoprost 0.005% Ophth Soln 2.5 ML Bottle EYEBOTH SCH (19:53)
--- NOTE | 2021-07-30 21:36 | PN ---
Progress Note for LISANDRA MCMAHON Date: 07/30/2021 Room #: [facility]214 CHIEF COMPLAINT: 1. Weakness. 2. Vomiting. HISTORY OF PRESENT ILLNESS: Hospital day #4 for an 80-year-old male patient, who was admitted to the acute care floor at [facility] for small bowel obstruction, nausea, vomiting. The patient is feeling better today. He is passing gas. The patient is having bowel movements. He is still on clear liquids. The patient has not had any abdominal pain. The patient's weight is down 7 pounds from yesterday after giving Lasix IV. The patient does not feel short of breath. No cough. The patient has been off oxygen since yesterday morning. No chest pain or palpitations. He still feels very weak. The patient has not had any headaches, dizziness, or lightheadedness. No diarrhea. No fevers or chills. REVIEW OF SYSTEMS: See HPI. PHYSICAL EXAMINATION: Vital Signs: Weight 197 pounds. Temperature 97.6, pulse 63, blood pressure 124/55, respiratory rate 16, oxygen saturation 96% on room air. Skin: Intact, warm, and dry. Respiratory: Lungs are decreased, but clear throughout. Cardiovascular: Regular rate and rhythm, no murmur. Abdomen: Soft, nontender, bowel sounds are normoactive x4. Extremities: +1 dependent lower pitting edema bilateral. Neurological: The patient is alert. The patient is oriented to person, place, and time. LABORATORY STUDIES: 1. CBC: White blood cell count 9.9, hemoglobin 13.7, hematocrit 40.1, and platelets 89,000. 2. CMP: Sodium 138, potassium 3.7, chloride 104, CO2 27, anion gap 10.7, BUN 12, creatinine 0.9, GFR greater than 60, glucose 82, calcium 7.8, AST 17, ALT 25, alkaline phosphatase 31, total protein 4.3. ASSESSMENT: 1. Small bowel obstruction. 2. Hyponatremia, resolved. 3. Leukocytosis, resolved. 4. Weakness. 5. Coronary atherosclerosis. 6. Congestive heart failure, NYHA class 2. 7. Malignant tumor of the colon. 8. Obstructive sleep apnea. 9. Hypercholesteremia. 10.Essential hypertension. 11.Automatic implantable cardioverter defibrillator. PLAN: Hospital day #4 for an 80-year-old male patient, who was admitted to the acute care floor for the above diagnoses. The patient is doing better today. We will clamp the NG for 6 hours and if the patient does not have any output, we will discontinue the NG tube. The patient needs to get up more often and keep moving to increase his endurance. Continue to advance diet as tolerated. Recheck laboratories for tomorrow. Continue to work with physical therapy. The patient will have a status change tomorrow to swing bed. This patient was seen and examined by me as an [facility] provider. TB: 07/30/2021 07:49:05 MODL: 07/30/2021 21:30:28 /[id number]
[2021-07-31] MEDS: Metoclopramide 10 MG/2 ML SDV IVPUSH SCH ×2 (01:48→09:36)
[2021-07-31] MEDS: Pantoprazole 40 MG Vial IVPUSH SCH (06:07)
[2021-07-31 08:22] LABS: CHLORIDE,CL 106 mmol/L (98-107); SODIUM,NA 139 mmol/L (136-145)
[2021-07-31 08:26] LABS: ANION GAP 10.4 mmol/L (5-15)
[2021-07-31] MEDS: Empagliflozin 10 MG Tab PO SCH (09:31)
[2021-07-31] MEDS: Amiodarone 200 MG Tab PO SCH (09:31)
[2021-07-31] MEDS: Carvedilol 6.25 MG Tab PO SCH ×2 (09:33→19:47)
[2021-07-31] MEDS: Spironolactone 25 MG Tab PO SCH (09:33)
[2021-07-31] MEDS: Sacubitril/Valsartan [Entresto 24 Mg-26 Mg Tablet] PO SCH ×2 (09:35→20:41)
[2021-07-31] MEDS ORDERED: Potassium Chloride 10 MEQ Tab.ER PO ONE (10:52)
--- NOTE | 2021-07-31 18:34 | PN ---
Progress Note for LISANDRA MCMAHON Date: 07/31/2021 Room #: [id number] CHIEF COMPLAINT: 1. Weakness. 2. Vomiting. HISTORY OF PRESENT ILLNESS: Hospital day #5 on an 80-year-old male patient who was admitted to the acute care floor at [facility] for a small bowel obstruction, nausea, vomiting. The patient states he is feeling much better today. He has not had any abdominal pain. The patient has not had any diarrhea. He states that his bowel movements have been formed. The patient has not felt nauseated for the past couple of days. He states his strength is getting much better. He has been ambulating in the hallway. The patient has not had any fevers or chills. No chest pain or palpitations. No leg swelling. The patient denies any shortness of breath or cough. The patient has been off oxygen for the past 2 days the maintaining saturations greater than 95%. REVIEW OF SYSTEMS: See HPI. PHYSICAL EXAMINATION: Vital Signs: Weight 196.4 pounds, temperature 97.2, pulse 69, blood pressure 128/60, oxygen saturation 97% on room air. Skin: Intact, warm, and dry. Respiratory: Lungs are decreased, but clear throughout. Cardiovascular: Regular rate and rhythm, no murmur. Abdomen: Soft, nontender. Bowel sounds are normoactive x4. The patient does have an NG in place. Extremities: No edema. Neurologic: The patient is alert. The patient is oriented to person, place, and time. No focal neurological deficit. LABORATORY STUDIES: 1. CBC: White blood cell count 9.9, hemoglobin 13.9, hematocrit 40.7, platelets are 97,000. 2. CMP: Sodium 139, potassium 3.4, chloride 106, CO2 of 26, anion gap 10.4, BUN 10, creatinine 0.9, GFR greater than 60, glucose 88, calcium 9.5, AST 15, ALT 26, alkaline phosphatase 27, total protein 4.4. ASSESSMENT: 1. Small bowel obstruction. 2. Hypernatremia, resolved. 3. Leukocytosis, resolved. 4. Weakness-improving. 5. Coronary atherosclerosis. 6. Congestive heart failure, [place] Heart Association class 2. 7. Malignant tumor of the colon. 8. Obstructive sleep apnea. 9. Hypercholesteremia. 10.Essential hypertension. 11.AICD. PLAN: Hospital day #5 on an 80-year-old male patient who was admitted to the acute care floor at [facility] for the above diagnoses. We will discontinue the NG today. The patient will be continued to be monitored for symptoms of worsening small bowel obstruction. We will increase the patient's diet as tolerated. Continue with ambulation in the hallways. We will discontinue Reglan today. The plan is for the patient to discharge home tomorrow into the care of his son. This was discussed with the patient's son and daughter at bedside. The patient does not need physical therapy, therefore he does not qualify for swing bed. This patient was seen and examined by me as an [facility] provider. TB: 07/31/2021 15:40:26 MODL: 07/31/2021 18:27:22 /[id number]
[2021-07-31] MEDS: Latanoprost 0.005% Ophth Soln 2.5 ML Bottle EYEBOTH SCH (20:41)
[2021-08-01] MEDS: Spironolactone 25 MG Tab PO SCH (08:00)
[2021-08-01] MEDS: Empagliflozin 10 MG Tab PO SCH (08:01)
[2021-08-01] MEDS: Sacubitril/Valsartan [Entresto 24 Mg-26 Mg Tablet] PO SCH (08:01)
[2021-08-01] MEDS: Amiodarone 200 MG Tab PO SCH (08:01)
[2021-08-01] MEDS: Carvedilol 6.25 MG Tab PO SCH (08:01)
[2021-08-01 09:31] LABS: CHLORIDE,CL 108 mmol/L (98-107); SODIUM,NA 141 mmol/L (136-145)
[2021-08-01 09:34] LABS: ANION GAP 13.9 mmol/L (5-15)
[2021-08-01] MEDS ORDERED: Potassium Chloride 20 MEQ Tab.ER PO ONE (09:36)
[2021-08-01 10:05] VITALS: BP 109/50; PULSE 72
--- NOTE | 2021-08-01 13:03 | DISCH ---
ADMITTING DIAGNOSES: 1. Small bowel obstruction. 2. Hyponatremia. 3. Supplemental oxygen-dependent secondary to COVID-19. 4. Leukocytosis. 5. Weakness. DISCHARGE DIAGNOSES: 1. Small bowel obstruction, improved. 2. Hyponatremia, resolved. 3. Supplemental oxygen-dependent secondary to COVID-19, resolved. 4. Leukocytosis, resolved. 5. Weakness, resolved. HISTORY OF PRESENT ILLNESS: An 80-year-old male patient presented to the emergency room at [facility] for ongoing weakness over the past several weeks after he was recently diagnosed with COVID-19 on 07/17/2021. The patient had been hospitalized for 5 days and discharged home under the [facility] COVID team. The patient had been monitored at home. The patient had been seen remotely by the COVID team. Upon presentation, the patient felt very weak, he had some abdominal discomfort. No diarrhea. He felt very nauseated. He did have 1 vomitus. Imaging studies showed a small bowel obstruction and the patient was hyponatremic as well as continuing on home oxygen secondary to COVID- 19. BRIEF HOSPITAL COURSE: The patient remained hemodynamically stable and afebrile. The patient was able to be weaned off oxygen back to room air. The patient's diet was slowly advanced. The NG tube was removed the day before discharge. The patient was tolerating p.o. fluids and foods without any issues. The patient was on Reglan which helped with bowel movements. The patient was initially started on antibiotics, but this was discontinued after the patient's leukocytosis had resolved. The patient did not have any fevers or chills. The patient did quite well. CONSULTATIONS: Case Management for discharge planning. DIET: Recommend a BRAT diet versus staying on full liquids for the next couple of days, then advancing as tolerated. ACTIVITY: As tolerated. CODE STATUS: Code 2. DISCHARGE LABORATORY WORK: Pending at the time of this dictation. DISCHARGE IMAGING STUDIES: None. DISCHARGE MEDICATIONS: 1. Amiodarone 200 mg 1 tablet p.o. daily. 2. Carvedilol 25 mg 1 tablet p.o. twice daily. 3. Cheratussin 5 mL p.o. every 4 hours as needed. 4. Jardiance 10 mg 1 tablet p.o. daily. 5. Latanoprost 2.5 mL to both eyes at bedtime. 6. Entresto 0.5 mg 1 tablet p.o. twice daily. 7. Spironolactone 25 mg 1 tablet p.o. daily. REVIEW OF SYSTEMS: See HPI. PHYSICAL EXAMINATION: Vital Signs: Height 5 feet 8 inches, weight 194 pounds, temperature 97.3, pulse 61, blood pressure 118/57, respiratory rate 20, oxygen saturation 96% on room air. Skin: Intact, warm, and dry. Respiratory: Lungs are decreased, but clear throughout. Cardiovascular: Regular rate and rhythm, no murmur. Abdomen: Soft, nontender. Bowel sounds are hyperactive x4. Extremities: Edema has resolved. Neurologic: The patient is alert. The patient is oriented to person, place, and time. No focal neurological deficits. ASSESSMENT: 1. Small bowel obstruction. 2. Hyponatremia. 3. Supplemental oxygen-dependent secondary to COVID-19. 4. Leukocytosis. 5. Weakness. 6. Coronary atherosclerosis. 7. Congestive heart failure, [place] Heart Association class 2. 8. Malignant tumor of the colon. 9. Obstructive sleep apnea, on CPAP. 10.Hypercholesteremia. 11.Essential hypertension. 12.AICD. PLAN: An 80-year-old male patient who was admitted to the acute care floor at [facility] for the above diagnoses. The patient is doing quite well today. Therefore, he will be discharged. We did talk about a BRAT diet, low residue, full liquid and advancing very slowly as tolerated. The patient will remain off oxygen. The patient will follow up with primary care provider this week. No changes with any home medications. The patient is a code 2. The patient was discharged from the hospital in hemodynamically stable condition. TB: 08/01/2021 08:40:57 MODL: 08/01/2021 09:10:34 /[id number]
== END 2021-08-01 10:35 | disposition home or self-care (01) | DRG 389 ==
LOC: VM.ED 21:47 → VM.MS 07-27 01:00
PROVIDERS: ADMIT Nurse Practitioner Family; ATTEND Nurse Practitioner Family
PROC: 0D9670Z Drainage of Stomach with Drainage Device, Via Natural or Artificial Opening (ICD-10-PCS; principal; 2021-07-28)
DX: K56.609 Unspecified intestinal obstruction, unspecified as to partial versus complete obstruction (principal); J96.01 Acute respiratory failure with hypoxia; E87.1 Hypo-osmolality and hyponatremia; D72.829 Elevated white blood cell count, unspecified; I47.2 Ventricular tachycardia; C18.9 Malignant neoplasm of colon, unspecified; I10 Essential (primary) hypertension; I49.9 Cardiac arrhythmia, unspecified; G47.30 Sleep apnea, unspecified; E78.00 Pure hypercholesterolemia, unspecified; I25.10 Atherosclerotic heart disease of native coronary artery without angina pectoris; Z85.038 Personal history of other malignant neoplasm of large intestine; Z86.16 Personal history of COVID-19; I50.9 Heart failure, unspecified; K57.90 Diverticulosis of intestine, part unspecified, without perforation or abscess without bleeding; G47.33 Obstructive sleep apnea (adult) (pediatric); I11.0 Hypertensive heart disease with heart failure; Z66 Do not resuscitate; R53.1 Weakness; U09.9 Post COVID-19 condition, unspecified; Z99.81 Dependence on supplemental oxygen; Z79.899 Other long term (current) drug therapy; Z95.810 Presence of automatic (implantable) cardiac defibrillator; Z95.1 Presence of aortocoronary bypass graft; Z79.82 Long term (current) use of aspirin
CPT/HCPCS: 36415; 71045; 71260; 74018; 74019; 74177; 80048; 80053; 81001; 82947; 83605; 83735; 84484; 85025; 86140; 87040; 97162-GP; 99284; 99285-25; A9270-GY; C9113; J0696; J1940; J2405; J2543; J2765; J7030; Q9967